=== PATIENT | male | born 1935 | race Caucasian/White ===

== ENCOUNTER 2017-07-17 16:28 | Inpatient (IN) | payer MEDICARE ==
[2017-07-17 17:22] LABS: Comments Flag Yes; Hematocrit 28 % (42-52); Mean Corpuscular HGB Conc 32 g/dl (31-36); Mean Corpuscular Hemoglobin 28 pg (27-31); Mean Corpuscular Volume 86 fL (80-94); Mean Platelet Volume 8 um3 (7.4-10.4); Red Blood Count 3.24 10^6/ul (4.0-5.4); Red Cell Distribution Width 18 % (10.5-15); White Blood Count 9.8 10^3/ul (3.5-10.8)
[2017-07-17 17:24] LABS: Add Diff/Slide Review? Slide Review Added
[2017-07-17 17:36] LABS: ALT 19 U/L (7-52); Albumin 2.6 g/dL (3.2-5.2); Alkaline Phosphatase 184 U/L (34-104); BUN/Creatinine Ratio 29.8 (8-20); Blood Urea Nitrogen 53 mg/dL (6-24); CO2 Carbon Dioxide 30 mmol/L (22-32); Calcium 8.6 mg/dL (8.6-10.3); Chloride 90 mmol/L (101-111); EGFR African American 47.4 (>60); EGFR Non-African American 36.9 (>60); Globulin 4.3 g/dL (2-4); Glucose 180 mg/dL (70-100); Sodium 122 mmol/L (133-145); Total Protein 6.9 g/dL (6.4-8.9)
[2017-07-17 17:37] LABS: Troponin I 0.03 ng/mL (<0.04)
[2017-07-17 18:30] LABS: Anion Gap 2 mmol/L (2-11)
[2017-07-17] MEDS ORDERED: Albuterol/Ipratropium NEB.SOL* Albuterol 2.5 MG/Ipratropium 0.5 MG 3 ML INH ONE (18:53)
[2017-07-17] MEDS ORDERED: NS 0.9% 1000 ML* 1,000 ML IV ONE (18:55)
[2017-07-17] MEDS ORDERED: cefTRIAXone(*) 1 GM in NS 0.9% 50 ML* 50 ML IVPB ONE (18:56)
[2017-07-17] MEDS ORDERED: Azithromycin IV(*) 500 MG in NS 0.9% 250 ML* 250 ML IVPB ONE (18:56)
--- NOTE | 2017-07-17 19:06 | ED ---
Brittnee Leal Alfonso, scribed for Arcelia Hill MD on 07/17/17 at 1756 . Shortness of Breath - HPI Summary HPI Summary: This patient is an 81 year old M BIBA to [facility] with a chief complaint of SOB since earlier today. The CC is described as uncomfortable but has no pain.. Pt sent from PCP office. Symptoms aggravated by sitting up and alleviated by inhaler (uses at home). Patient reports productive cough. Pt also reports that he used to smoke 3PPD and that his last drink was 3 years ago. No home O2. Pt denies CP. No abdoimal pain. No fevers, chills. No rash. Review of paperwork form PCP - pt with h/o cirrhosis, copd, enlarged prostate. PMHx includes DM2, ASTHMA, COPD, bronchiolitis, and cirrhosis. Pt denies PMHx of [place] and CVA. Patients medication reviewed this visit. - History of Current Complaint Chief Complaint: EDShortnessOfBreath Time Seen by Provider: 07/17/17 17:51 Hx Obtained From: Patient Onset/Duration: Still Present Aggrevating Factors: Movement - Sitting up Alleviating Factors: Bronchodilators - inhaler at home Associated Signs & Symptoms: Cough (Productive) - Allergy/Home Medications Allergies/Adverse Reactions: Allergies Allergy/AdvReac Type Severity Reaction Status Date / Time Red Dye Allergy Unknown Unknown Verified 12/28/14 09:19 Reaction Details PMH/Surg Hx/FS Hx/Imm Hx Previously Healthy: Yes Endocrine/Hematology History: Reports: Hx Diabetes, Hx Anemia Cardiovascular History: Reports: Hx Hypertension Denies: Hx Myocardial Infarction Respiratory History: Reports: Hx Asthma, Hx Chronic Bronchitis, Hx Chronic Obstructive Pulmonary Disease (COPD), Hx Pneumonia, Other Respiratory Problems/ Disorders - emphasema GI History: Reports: Hx Cirrhosis - alcoholic History: Reports: Other Problems/Disorders - renal insufficency Musculoskeletal History: Reports: Hx Arthritis, Hx Gout Sensory History: Reports: Hx Contacts or Glasses - for reading Opthamlomology History: Reports: Hx Contacts or Glasses - for reading Neurological History: Denies: Hx CVA - Surgical History Surgery Procedure, Year, and Place: bilateral catarac extration. bronchoscopy Infectious Disease History: No Infectious Disease History: Reports: Hx of Known/Suspected MRSA Denies: Traveled Outside the [place] in Last 30 Days - Family History Known Family History: Positive: Diabetes, Other - Asthma - Social History Occupation: Retired Lives: With Family Alcohol Use: None - neg x 3 years per pt Substance Use Type: Reports: None Smoking Status (MU): Former Smoker - neg x 2 years per pt Review of Systems Constitutional: Negative Eyes: Negative ENT: Negative Cardiovascular: Negative Positive: Shortness Of Breath - uncomfortable but no pain, Cough - Productive cough Gastrointestinal: Negative Genitourinary: Negative Musculoskeletal: Negative Skin: Negative Neurological: Negative Psychological: Normal All Other Systems Reviewed And Are Negative: Yes Physical Exam Triage Information Reviewed: Yes Vital Signs On Initial Exam: Initial Vitals BP 170/58 07/17/17 16:37 Vital Signs Reviewed: Yes Appearance: Positive: Well-Appearing, Well-Nourished Skin: Positive: Warm, Skin Color Reflects Adequate Perfusion, Dry Head/Face: Positive: Normal Head/Face Inspection Eyes: Positive: Normal, EOMI, CLARICE ENT: Positive: Normal ENT inspection, Hearing grossly normal, Pharynx normal Neck: Positive: Supple, Nontender, No Lymphadenopathy Respiratory/Lung Sounds: Positive: Wheezes - audible wheeze, diffuse scattered wheeze on exam no acessory muscle use, + cough. Negative: Rales, Rhonchi, Subcutaneous Emphysema Cardiovascular: Positive: Normal, RRR. Negative: Murmur Abdomen Description: Positive: Nontender, No Organomegaly, Soft Bowel Sounds: Positive: Present Musculoskeletal: Positive: Normal, Strength/ROM Intact Neurological: Positive: Normal, Sensory/Motor Intact, Alert, Oriented to Person Place, Time Psychiatric: Positive: Normal AVPU Assessment: Alert - Tenino Coma Scale Best Eye Response: 4 - Spontaneous Best Motor Response: 6 - Obeys Commands Best Verbal Response: 5 - Oriented Coma Scale Total: 15 Diagnostics - Vital Signs Vital Signs Temp Pulse Resp BP Pulse Ox 07/17/17 17:30 25 184/62 07/17/17 17:00 60 27 183/58 98 07/17/17 16:38 97.4 F 59 29 170/58 98 07/17/17 16:37 170/58 - Laboratory Lab Results: Lab Results 07/17/17 07/17/17 Range/Units 17:09 17:09 WBC 9.8 (3.5-10.8) 10^3/ul RBC 3.24 L (4.0-5.4) 10^6/ul Hgb 9.0 L (14.0-18.0) g/dl Hct 28 L (42-52) % MCV 86 (80-94) fL MCH 28 (27-31) pg MCHC 32 (31-36) g/dl RDW 18 H (10.5-15) % Plt Count 100 L (150-450) 10^3/ul MPV 8 (7.4-10.4) um3 Neut % (Auto) 80.9 (38-83) % Lymph % (Auto) 7.8 L (25-47) % Jewell % (Auto) 8.6 (1-9) % Eos % (Auto) 1.4 (0-6) % Baso % (Auto) 1.3 (0-2) % Absolute Neuts (auto) 7.9 H (1.5-7.7) 10^3/ul Absolute Lymphs (auto) 0.8 L (1.0-4.8) 10^3/ul Absolute Monos (auto) 0.8 (0-0.8) 10^3/ul Absolute Eos (auto) 0.1 (0-0.6) 10^3/ul Absolute Basos (auto) 0.1 (0-0.2) 10^3/ul Absolute Nucleated RBC 0 10^3/ul Nucleated RBC % 0 Sodium 122 L (133-145) mmol/L Potassium Pending Chloride 90 L (101-111) mmol/L Carbon Dioxide 30 (22-32) mmol/L Anion Gap Pending BUN 53 H (6-24) mg/dL Creatinine 1.78 H (0.67-1.17) mg/dL Est GFR ( Amer) 47.4 (>60) Est GFR (Non-Af Amer) 36.9 (>60) BUN/Creatinine Ratio 29.8 H (8-20) Glucose 180 H (70-100) mg/dL Calcium 8.6 (8.6-10.3) mg/dL Total Bilirubin 0.70 (0.2-1.0) mg/dL AST Pending ALT 19 (7-52) U/L Alkaline Phosphatase 184 H (34-104) U/L Troponin I 0.03 (<0.04) ng/mL Total Protein 6.9 (6.4-8.9) g/dL Albumin 2.6 L (3.2-5.2) g/dL Globulin 4.3 H (2-4) g/dL Albumin/Globulin Ratio 0.6 L (1-3) Result Diagrams: 07/17/17 17:09 07/17/17 17:09 Lab Statement: Any lab studies that have been ordered have been reviewed, and results considered in the medical decision making process. - Radiology CXR Radiology Interpretation Completed By: Radiologist - BILATERAL INFILTRATES, RECOMMEND FOLLOW-UP CHEST X-RAYS TO RESOLUTION. - EKG 1859 Cardiac Rate: NL - BPM 61 EKG Rhythm: Sinus Rhythm EKG Interpretation: NAC Re-Evaluation - Re-Evaluation First Eval Comment: improved following neb. pt with PNA on CXR. Will give zithromax/ Ceftriaxone. also with hyponatremia. IVF. d/w hospitalist, will admit Course/Dx - Course Assessment/Plan: PT presents from PCP with cough, wheeze, productive sputum - states feels weak and tired. Pt with + diffuse wheeze and auible wheeze. no accessory muscle use. Will check cxr. labs, lactic acid. nebs. like abx. +/ - steroids. sats 94% 2lNC - Diagnoses Provider Diagnoses: PNA (pneumonia), Hyponatremia - Physician Notifications Discussed Care of Patient With: Gopal Hill Time Discussed With Above Provider: 18:50 Instructed by Provider To: Other - Consulted Dr. Hill (hospitalist) who agrees to admit. Discharge - Discharge Plan Condition: Stable Disposition: ADMITTED TO [facility] Referrals: Caleb Fonseca MD [Primary Care Provider] - The documentation as recorded by the Brittnee baird Alfonso accurately reflects the service I personally performed and the decisions made by Sergio bazan Laura, MD.
--- NOTE | 2017-07-17 19:18 | RAD ---
INDICATION: Shortness of breath. COMPARISON: Comparison is made with a prior study from December 28, 2014. TECHNIQUE: A portable view of the chest was obtained. FINDINGS: The heart is within normal limits in size. There is a focal infiltrate in the right upper lobe and a patchy infiltrate present at the left lung base. No pleural effusion is seen. IMPRESSION: BILATERAL INFILTRATES, RECOMMEND FOLLOW-UP CHEST X-RAYS TO RESOLUTION.
[2017-07-17] MEDS ORDERED: Vancomycin(*) 1,000 MG in NS 0.9% 250 ML* 250 ML IVPB SCH (20:00)
--- NOTE | 2017-07-17 21:28 | HP ---
H&P (Free Text) History and Physical: PCP: Bright Joseph MD Date/Time of Evaluation: 07/17/20172019 CC: none HPI: Mr Mcmanus is an 81YO male poor historian who states that he is here because his wanted him to come. She is not present for information. He denies any acute symptoms, illnesses, change in baseline function or other issues. Further questioning reveals he was referred to [facility] ED from his PCP's office where he was seen today and felt to be very SOB with a low saO2 prompting EMS to be called for transport. Mr Mcmanus denies SOB, chest pain, palpitations, F/C, change in cough/sputum, N/V, congestion, or light- headedness. He is currently resting in his ED bed in no obvious distress. PMedHx COPD cirrhosis hepato-renal syndrome thrombocytopenia DM2, insulin requiring CKD stg 3b HTN HLD GERD Ambulatory Orders Albuterol Sulfate [Proair Hfa] 108 mcg IN Q4HR PRN 12/28/14 Insulin NPH (Human) (Isophane) [Humulin N Kwikpen] 10 unit SC SEE INSTRUCTIONS 12/28/14 Levofloxacin TAB* [Levaquin 500 Tab*] 500 mg PO WEEKLY 12/28/14 Nadolol TAB* [Corgard TAB*] 20 mg PO DAILY 12/28/14 Omeprazole CAP* [Prilosec CAP*] 20 mg PO DAILY 12/28/14 Tiotropium CAP.INH* [Spiriva*] 1 cap INH DAILY 12/28/14 Allergies Red Dye Allergy (Unknown, Verified 12/28/14 09:19) Unknown Reaction Details SocHx: former smoker, former drinker, no recreational drugs; lives with his ; full code status FamHx: positive for CAD, CVA, HTN, DM2 ROS: as above, otherwise reviewed and all were negative Constitutional: NAD, normally developed, well-nourished elderly white male vitals: Vital Signs Temp 36.6 C 07/17/17 19:12 Pulse 58 07/17/17 21:00 Resp 19 07/17/17 21:00 BP 121/52 07/17/17 21:00 Pulse Ox 100 07/17/17 21:00 Intake & Output 08/20/17 08/21/17 08/21/17 23:59 11:59 23:59 Intake Total 50 Balance 50 Weight 63.503 kg Intake: IVPB 50 HEENM: atraumatic; sclera/conjunctiva: non-icteric/clear; hearing: clinically mildly decreased oropharynx: clear, mucosa moist Neck: soft tissue: non-tender, no nuchal rigidity; thyroid: normal Pulmonary: diminished B with prominent mid- to end-expiratory wheeze on the R, fair to poor aeration, no accessory muscle use CV: RR/RR, normal S1S2, no carotid bruit, no jugular venous distention, 2+ B DP/ PT, 1+ BLE edema Abdominal: soft, non-distended, non-tender, no rebound/guarding/rigidity, normoactive bowel sounds, no hepatosplenomegaly or masses, small non-tender jesus -umbilical hernia; no costovertebral angle tenderness Musculoskeletal: general: grossly intact, no palpable tenderness Integumental: R anterior thomason bruise/skin tear w/o discharge, warmth, induration , erythema, or tenderness Psychiatric orientation: AA&O to PPS affect: calm mood: cooperative eye contact: fair content: unreliable responses: timely insight: poor Testing: Lab Results 07/17/17 07/17/17 07/17/17 Range/Units 17:09 17:09 17:09 WBC 9.8 (3.5-10.8) 10^3/ul RBC 3.24 L (4.0-5.4) 10^6/ul Hgb 9.0 L (14.0-18.0) g/dl Hct 28 L (42-52) % MCV 86 (80-94) fL MCH 28 (27-31) pg MCHC 32 (31-36) g/dl RDW 18 H (10.5-15) % Plt Count 100 L (150-450) 10^3/ul MPV 8 (7.4-10.4) um3 Neut % (Auto) 80.9 (38-83) % Lymph % (Auto) 7.8 L (25-47) % Gage % (Auto) 8.6 (1-9) % Eos % (Auto) 1.4 (0-6) % Baso % (Auto) 1.3 (0-2) % Absolute Neuts (auto) 7.9 H (1.5-7.7) 10^3/ul Absolute Lymphs (auto) 0.8 L (1.0-4.8) 10^3/ul Absolute Monos (auto) 0.8 (0-0.8) 10^3/ul Absolute Eos (auto) 0.1 (0-0.6) 10^3/ul Absolute Basos (auto) 0.1 (0-0.2) 10^3/ul Absolute Nucleated RBC 0 10^3/ul Nucleated RBC % 0 Sodium 122 L (133-145) mmol/L Potassium TNP Chloride 90 L (101-111) mmol/L Carbon Dioxide 30 (22-32) mmol/L Anion Gap 2 (2-11) mmol/L BUN 53 H (6-24) mg/dL Creatinine 1.78 H (0.67-1.17) mg/dL Est GFR ( Amer) 47.4 (>60) Est GFR (Non-Af Amer) 36.9 (>60) BUN/Creatinine Ratio 29.8 H (8-20) Glucose 180 H (70-100) mg/dL Calcium 8.6 (8.6-10.3) mg/dL Total Bilirubin 0.70 (0.2-1.0) mg/dL AST TNP ALT 19 (7-52) U/L Alkaline Phosphatase 184 H (34-104) U/L Troponin I 0.03 (<0.04) ng/mL B-Natriuretic Peptide 155 H ( - 100) pg/mL Total Protein 6.9 (6.4-8.9) g/dL Albumin 2.6 L (3.2-5.2) g/dL Globulin 4.3 H (2-4) g/dL Albumin/Globulin Ratio 0.6 L (1-3) 07/17/17 Range/Units 19:25 WBC (3.5-10.8) 10^3/ul RBC (4.0-5.4) 10^6/ul Hgb (14.0-18.0) g/dl Hct (42-52) % MCV (80-94) fL MCH (27-31) pg MCHC (31-36) g/dl RDW (10.5-15) % Plt Count (150-450) 10^3/ul MPV (7.4-10.4) um3 Neut % (Auto) (38-83) % Lymph % (Auto) (25-47) % Gage % (Auto) (1-9) % Eos % (Auto) (0-6) % Baso % (Auto) (0-2) % Absolute Neuts (auto) (1.5-7.7) 10^3/ul Absolute Lymphs (auto) (1.0-4.8) 10^3/ul Absolute Monos (auto) (0-0.8) 10^3/ul Absolute Eos (auto) (0-0.6) 10^3/ul Absolute Basos (auto) (0-0.2) 10^3/ul Absolute Nucleated RBC 10^3/ul Nucleated RBC % Sodium (133-145) mmol/L Potassium 5.1 H Chloride (101-111) mmol/L Carbon Dioxide (22-32) mmol/L Anion Gap (2-11) mmol/L BUN (6-24) mg/dL Creatinine (0.67-1.17) mg/dL Est GFR ( Amer) (>60) Est GFR (Non-Af Amer) (>60) BUN/Creatinine Ratio (8-20) Glucose (70-100) mg/dL Calcium (8.6-10.3) mg/dL Total Bilirubin (0.2-1.0) mg/dL AST 39 ALT (7-52) U/L Alkaline Phosphatase (34-104) U/L Troponin I (<0.04) ng/mL B-Natriuretic Peptide ( - 100) pg/mL Total Protein (6.4-8.9) g/dL Albumin (3.2-5.2) g/dL Globulin (2-4) g/dL Albumin/Globulin Ratio (1-3) ECG, personally reviewed: NSR rate 61, no ischemia CXR, personally reviewed: IMPRESSION: BILATERAL INFILTRATES, RECOMMEND FOLLOW- UP CHEST X-RAYS TO RESOLUTION. Impression: 81M presenting with sepsis (tachypnea & AMS) 2nd B CAP and 2nd COPD exacerbation DIAGNOSIS & PLAN Primary sepsis 2nd B CAP : azithromycin & ceftriaxone IV : single dose vancomycin given in ED, no further indication : IVFs : blood & sputum CXs : supplemental oxygen : guaifenesin : urine S pneumonia & Legionella antigens : incentive spirometry : supportive care COPD exacerbation : albuterol nebs : mometasone/formoterol : tiotropium : IV methylprednisolone Secondary cirrhosis : HX hepato-renal syndrome : HX 2nd thrombocytopenia : periodic monitoring DM2 : insulin carb ratio diet : check A1c : basal/bolus/correctional insulin CKD stg 3b : IVFs & monitor HTN : review meds once reconciled HLD : heart healthy diet : review meds once reconciled GERD : omeprazole Admission Rational: inpatient for IVFs & IV ABX for sepsis 2nd CAP inappropriate for outpatient setting DVTp: heparin SQ & SCDs Code Status: full HCP:
[2017-07-17] MEDS ORDERED: Ondansetron INJ* 2 MG/ML VIAL IV PRN (21:30)
[2017-07-17] MEDS ORDERED: Acetaminophen TAB* 325 MG PO PRN (21:30)
[2017-07-17] MEDS ORDERED: CMCS: Melatonin (NF) 3 MG TAB PO PRN (21:30)
[2017-07-17] MEDS ORDERED: Albuterol 2.5 MG/3 ML NEB.SOL* (0.083%) INH PRN (21:30)
[2017-07-17] MEDS ORDERED: methylPREDNISolone 125 MG* 2 ML VIAL IV ONE (22:35)
[2017-07-17] MEDS: NS 0.9% 1000 ML* 1,000 ML IV SCH (23:43)
[2017-07-18] MEDS: Albuterol 2.5 MG/3 ML NEB.SOL* (0.083%) INH SCH ×4 (02:00→19:29)
[2017-07-18] MEDS ORDERED: methylPREDNISolone SOD 40 MG* 1 ML VIAL IV SCH (06:00)
[2017-07-18 06:01] LABS: Hematocrit 23 % (42-52); Hemoglobin 7.4 g/dl (14.0-18.0); Mean Corpuscular HGB Conc 32 g/dl (31-36); Mean Corpuscular Hemoglobin 28 pg (27-31); Mean Corpuscular Volume 86 fL (80-94); Mean Platelet Volume 8 um3 (7.4-10.4); Red Blood Count 2.64 10^6/ul (4.0-5.4); Red Cell Distribution Width 18 % (10.5-15); White Blood Count 4.4 10^3/ul (3.5-10.8)
[2017-07-18 06:05] LABS: Comments Flag Yes
[2017-07-18 06:06] LABS: Add Diff/Slide Review? Slide Review Added
[2017-07-18 06:23] LABS: BUN/Creatinine Ratio 33.5 (8-20); Calcium 8.1 mg/dL (8.6-10.3); EGFR Non-African American 39.7 (>60); Potassium 5.3 mmol/L (3.5-5.0)
[2017-07-18] MEDS: Heparin VIAL(*) 5000 UNITS/ML VIAL (FIVE THOUSAND) SUBCUT SCH ×3 (06:24→21:18)
[2017-07-18] MEDS: Omeprazole CAP* 20 MG PO SCH (06:24)
[2017-07-18] MEDS: guaiFENesin ER TAB 600 MG PO SCH ×2 (08:25→21:18)
[2017-07-18] MEDS: Tiotropium CAP.INH* CAP.INH/18 MCG INH SCH (08:26)
[2017-07-18] MEDS: Mometasone/Formoter 200/5 MDI INH SCH ×2 (08:30→19:29)
[2017-07-18] MEDS ORDERED: Spiriva Inhaler DEVICE* 1 EACH DEVICE INH ONE (09:00)
[2017-07-18] MEDS: Insulin LISPRO* 1 UNITS UNIT SUBCUT SCH ×7 (09:30→21:31)
--- NOTE | 2017-07-18 10:30 | PN ---
Subjective Date of Service: 07/18/17 Interval History: Patient seen this morning. Asking to go home. Denies SOB, says he has a chronic wheeze and chronic cough. Said he came to the hospital because he fell at home and his made him come. Explained PNA and COPD exacerbation, seems agreeable to stay. Family History: Unchanged from Admission Social History: Unchanged from Admission Past Medical History: Unchanged from Admission Objective Active Medications: Acetaminophen (Tylenol Tab*) 650 mg PO Q6H PRN Albuterol (Ventolin 2.5 Mg/3 Ml Neb.Rebecca*) 2.5 mg INH Q2H PRN Albuterol (Ventolin 2.5 Mg/3 Ml Neb.Rebecca*) 2.5 mg INH [id number] AWAKE VANITA Guaifenesin (Mucinex*) 1,200 mg PO BID VANITA Heparin Sodium (Porcine) (Heparin Vial(*)) 5,000 units SUBCUT Q8HR VANITA Sodium Chloride (Ns 0.9% 1000 Ml*) 1,000 mls @ 85 mls/hr IV PER RATE VANITA Ceftriaxone Sodium 1,000 mg/ (Sodium Chloride) 50 mls @ 200 mls/hr IVPB Q24H VANITA Azithromycin 500 mg/ Sodium (Chloride) 250 mls @ 250 mls/hr IVPB Q24H [facility] Insulin Glargine (Lantus(*)) 10 units SUBCUT 2100 VANITA Insulin Human Lispro (Humalog*) 0 units SUBCUT AC VANITA Insulin Human Lispro (Humalog*) 0 units SUBCUT ACHS VANITA Melatonin (Melatonin (Nf)) 3 mg PO BEDTIME PRN; Protocol Methylprednisolone Sodium Succinate (Solu-Medrol 40 Mg) 40 mg IV Q8H [facility] Mometasone Furoate/Formoterol Fumar (Dulera 200/5 Mdi*) 2 puff INH BID VANITA Omeprazole (Prilosec Cap*) 20 mg PO DAILY@0600 VANITA Ondansetron HCl (Zofran Inj*) 4 mg IV Q6H PRN Tiotropium [place] (Spiriva Cap.Inh*) 1 cap INH DAILY [facility] Vital Signs 07/17/17 07/17/17 07/17/17 20:30 21:00 21:53 Temperature 97.4 F Pulse Rate 59 58 67 Respiratory 22 19 20 Rate Blood Pressure 137/53 121/52 137/50 (mmHg) O2 Sat by Pulse 100 100 99 Oximetry 07/17/17 07/18/17 07/18/17 22:00 00:05 00:15 Temperature 97.4 F 97.5 F Pulse Rate 67 56 Respiratory 20 16 Rate Blood Pressure 137/50 116/42 118/54 (mmHg) O2 Sat by Pulse 99 98 Oximetry 07/18/17 07/18/17 04:27 08:48 Temperature 97.6 F Pulse Rate 64 Respiratory 16 Rate Blood Pressure 144/57 (mmHg) O2 Sat by Pulse 95 98 Oximetry Oxygen Devices in Use Now: None Appearance: Elderly, M, laying in bed in NAD Eyes: No Scleral Icterus Ears/Nose/Mouth/Throat: - - Dry MM Neck: NL Appearance and Movements; NL JVP Respiratory: Symmetrical Chest Expansion and Respiratory Effort, - - Poor- moderate air movement, expiratory wheezing throughout, no rales Cardiovascular: NL Sounds; No Murmurs; No JVD, RRR Abdominal: - - Soft, distended, BS+, non-tender Lymphatic: No Cervical Adenopathy Extremities: - - Trace LE edema Skin: No Rash or Ulcers Neurological: Alert and Oriented x 3 Result Diagrams: 07/18/17 05:45 07/18/17 05:45 Microbiology and Other Data: Microbiology 07/18/17 00:52 Legionella Urinary Antigen - Final Urine Negative Legionella Streptococcus pneumoniae Ag Screen - Final Negative S. pneumo Antigen 07/17/17 22:02 Nasal Screen MRSA (PCR)(MARIAH) - Final Nasal Mrsa Negative Assess/Plan/Problems-Billing Assessment: COPD exacerbation 2/2 CAP, hyponatremia in an 81 yo M with hx of COPD, cirrhosis , HTN, HLD, CKD3, DM, GERD - Patient Problems (1) COPD exacerbation Current Visit: Yes Comment: 2/2 CAP. Currently not requiring O2. Change to PO steroids, continue nebs, dulera, spiriva. (2) CAP (community acquired pneumonia) Current Visit: Yes Comment: Continue IV CTX/Azithromycin (Day 2). Urine antigens negative. Not requiring O2. (3) Hyponatremia Current Visit: Yes Comment: May be from dehydration, poor PO intake. Improving with light IVF, will continue for now. Check Norbert. (4) Type 2 diabetes mellitus Current Visit: No Comment: Continue HISS. HbA1c pending. (5) Chronic renal insufficiency Current Visit: No Comment: Stable (6) HTN (hypertension) Current Visit: Yes Comment: Hold nadolol for now (7) Cirrhosis Current Visit: Yes Comment: Seems stable, platelets around baseline, hold diuretics for now (8) DVT prophylaxis Current Visit: Yes Comment: HSQ
[2017-07-18] MEDS: NS 0.9% 1000 ML* 1,000 ML IV SCH (12:07)
[2017-07-18] MEDS: predniSONE TAB* 20 MG PO SCH (13:16)
[2017-07-18] MEDS ORDERED: Insulin GLARGINE(*) 1 UNITS UNIT SUBCUT SCH (21:00)
[2017-07-18] MEDS ORDERED: Azithromycin IV(*) 500 MG in NS 0.9% 250 ML* 250 ML IVPB SCH (21:00)
[2017-07-18] MEDS ORDERED: cefTRIAXone VIAL(*) 1,000 MG in NS 0.9% 50 ML* 50 ML IVPB SCH (21:00)
[2017-07-19] MEDS: NS 0.9% 1000 ML* 1,000 ML IV SCH (01:05)
[2017-07-19] MEDS: Albuterol 2.5 MG/3 ML NEB.SOL* (0.083%) INH SCH ×3 (01:24→13:10)
[2017-07-19] MEDS: Omeprazole CAP* 20 MG PO SCH (05:35)
[2017-07-19] MEDS: Heparin VIAL(*) 5000 UNITS/ML VIAL (FIVE THOUSAND) SUBCUT SCH (05:35)
[2017-07-19 05:41] LABS: Hematocrit 19 % (42-52); Mean Corpuscular HGB Conc 33 g/dl (31-36); Mean Corpuscular Hemoglobin 28 pg (27-31); Mean Corpuscular Volume 86 fL (80-94); Mean Platelet Volume 8 um3 (7.4-10.4); Red Blood Count 2.24 10^6/ul (4.0-5.4); Red Cell Distribution Width 18 % (10.5-15); White Blood Count 5.1 10^3/ul (3.5-10.8)
[2017-07-19 05:43] LABS: Comments Flag Yes
[2017-07-19 05:44] LABS: Add Diff/Slide Review? Slide Review Added
[2017-07-19 05:45] LABS: Hemoglobin 6.3 g/dl (14.0-18.0)
[2017-07-19 05:57] LABS: BUN/Creatinine Ratio 34.8 (8-20); EGFR African American 41.9 (>60); EGFR Non-African American 32.6 (>60); Potassium 4.9 mmol/L (3.5-5.0)
[2017-07-19 06:23] LABS: Hematocrit 22 % (42-52); Hemoglobin 7.1 g/dl (14.0-18.0)
[2017-07-19 06:43] LABS: Comments Flag Yes
[2017-07-19] MEDS: Tiotropium CAP.INH* CAP.INH/18 MCG INH SCH (07:41)
[2017-07-19] MEDS: Mometasone/Formoter 200/5 MDI INH SCH (07:42)
[2017-07-19] MEDS: predniSONE TAB* 20 MG PO SCH (08:56)
[2017-07-19] MEDS: guaiFENesin ER TAB 600 MG PO SCH (08:56)
[2017-07-19] MEDS: Insulin LISPRO* 1 UNITS UNIT SUBCUT SCH ×4 (08:58→13:40)
[2017-07-19] MEDS ORDERED: Spironolactone TAB* 25 MG PO SCH (12:15)
[2017-07-19] MEDS ORDERED: Furosemide TAB* 20 MG PO SCH (13:00)
--- NOTE | 2017-07-19 14:33 | DCNOTE ---
Patient seen this morning. Says he feels well, anxious to go home. No SOB at this time, ambulated with PT with no issues. Patient says he has had blood in his stool for years, also takes iron. Recent notes from Dr. Davies reviewed, patient has been on care home ABx for bronchectasis. Has had a number of concerning outpatient findings (including worsening anemia) that he has not wanted to pursue a work-up for, he feels similarly at this time, would not want endoscopy. On exam, RRR, s1 and s2 present, no m/g/r, lungs with trace wheezing in lower [place], good air movement, abd distended, soft, non-tender, LE edema Hb lower this morning with guaiac positive stool (on outpatient iron), unclear if he is actually having any bleeding or anemia worse with IVF. Will transfuse 1 unit PRBC. Discharge home later today on oral ABx for CAP and prednisone. Updated on plan, her main concern is that he is stubborn and often does not follow-up doctors instructions at home. Encouraged close follow-up with Dr. Davies to discuss possible FPC placement for him or both of them.
[2017-07-19 15:07] VITALS: BP 121/46
--- NOTE | 2017-07-20 10:01 | DS ---
CC: Dr. Pao Davies * DISCHARGE SUMMARY: DATE OF ADMISSION: 07/17/17 DATE OF DISCHARGE: 07/19/17 PRIMARY CARE PHYSICIAN: Dr. Pao Davies. PRINCIPAL DISCHARGE DIAGNOSES: 1. Community-acquired pneumonia. 2. Chronic obstructive pulmonary disease exacerbation. 3. Hyponatremia. 4. Acute on chronic anemia. SECONDARY DIAGNOSES: 1. Cirrhosis. 2. History of hepatorenal syndrome. 3. Thrombocytopenia. 4. Type 2 diabetes. 5. Chronic kidney disease, stage 3. 6. Hypertension. 7. Hyperlipidemia. 8. Gastroesophageal reflux disease. DISCHARGE MEDICATION REGIMEN: 1. Cefpodoxime 200 mg by mouth 2 times daily. 2. Azithromycin 500 mg by mouth daily. 3. Lasix 20 mg by mouth daily. 4. Spironolactone 25 mg by mouth daily. 5. Prednisone 40 mg by mouth daily. 6. Albuterol 108 micrograms inhaled every 4 hours as needed for shortness of breath or wheezing. 7. Insulin NPH as instructed. 8. Nadolol 20 mg by mouth daily. 9. Omeprazole 20 mg by mouth daily. 10. Spiriva 1 capsule inhaled daily. 11. Vitamin C 500 mg by mouth daily. 12. Ferrous sulfate 325 mg by mouth daily. STUDIES DONE DURING HOSPITALIZATION: Chest x-ray, impression: Bilateral infiltrates. Recommend followup chest x-rays to resolution. HISTORY OF PRESENT ILLNESS AND HOSPITAL SUMMARY: Please see the full history and physical by Dr. Bo Ordaz for full details. Briefly, Mr. Mcmanus is an 81- year-old male with a past medical history as above, who presented to the hospital after being referred from his PCP office for progressive shortness of breath, cough, and falls at home. In the emergency department, the patient was found to have consolidations on chest x-ray and was also hyponatremic with sodium of 122. The patient was started on IV antibiotics to treat the pneumonia and was also treated for COPD exacerbation with initially IV and then subsequently p.o. steroids along with nebulizers and inhalers. The patient's symptoms improved over the following days. He states his breathing seemed much better. He was given some IV fluids with improvements in his sodium; however, potentially a little bit worsening in his chronic edema. Notes obtained from Dr. Davies's office indicated that the patient has had significant chronic medical problems and often has not wanted further workup or invasive testing, prefers to just let nature about its course. The patient told me that he has had blood present in the stool for years now. He had worsening of his chronic anemia while hospitalized here with hemoglobin that dropped down to 7.1. The patient's stool was guaiac positive, although he does take iron supplementation as an outpatient. The patient was transfused 1 unit of blood prior to discharge. He was evaluated by Physical Therapy who cleared the patient to go home. I spoke with the patient's each day that the patient was hospitalized. She expressed some concern over being able to handle the patient at home, but this did not seem to be from a physical standpoint, but rather getting the patient to comply with doctor's recommendations. I understood her concern; however, it seems that the patient has been stubborn for quite a long time and may have a difficult time changing this. I encouraged her to go into her 's next appointment with Dr. Davies and discuss the possibility of assisted living for him or both of them as they currently live in [facility]. The patient will be discharged on 5 additional days of oral antibiotics as well as with a short course of prednisone for his COPD. He seems to be on chronic antibiotics for his bronchiectasis and instructed he and his to hold these antibiotics until he has completed his course of cefpodoxime and then he can discuss further with Dr. Davies if and when to resume these other antibiotics specifically Keflex, doxycycline, and Levaquin. The patient will be discharged home and should follow up with the PCP as above. Total time spent on this discharge was 45 minutes. This is a summary of hospitalization. Please see the full medical record for further details. [id number]/[facility] #: [id number] [facility]
== END 2017-07-19 16:45 | disposition home health service (06) | DRG 190 ==
LOC: ED 16:28 → MED 20:19
PROVIDERS: ADMIT Hospitalist; ATTEND Hospitalist
PROC: 30233N1 Transfusion of Nonautologous Red Blood Cells into Peripheral Vein, Percutaneous Approach (ICD-10-PCS; principal; 2017-07-19)
DX: J44.0 Chronic obstructive pulmonary disease with (acute) lower respiratory infection (principal); K76.7 Hepatorenal syndrome; J18.9 Pneumonia, unspecified organism; E11.22 Type 2 diabetes mellitus with diabetic chronic kidney disease; D69.6 Thrombocytopenia, unspecified; R40.2362 Coma scale, best motor response, obeys commands, at arrival to emergency department; R40.2142 Coma scale, eyes open, spontaneous, at arrival to emergency department; R40.2252 Coma scale, best verbal response, oriented, at arrival to emergency department; J47.9 Bronchiectasis, uncomplicated; D64.9 Anemia, unspecified; K74.60 Unspecified cirrhosis of liver; E87.1 Hypo-osmolality and hyponatremia; N18.3 Chronic kidney disease, stage 3 (moderate); J44.1 Chronic obstructive pulmonary disease with (acute) exacerbation; I12.9 Hypertensive chronic kidney disease with stage 1 through stage 4 chronic kidney disease, or unspecified chronic kidney disease; E78.5 Hyperlipidemia, unspecified; K21.9 Gastro-esophageal reflux disease without esophagitis; F10.21 Alcohol dependence, in remission; N40.0 Benign prostatic hyperplasia without lower urinary tract symptoms; M19.90 Unspecified osteoarthritis, unspecified site; M10.9 Gout, unspecified; Z87.891 Personal history of nicotine dependence; Z82.49 Family history of ischemic heart disease and other diseases of the circulatory system; Z83.3 Family history of diabetes mellitus; Z82.3 Family history of stroke; Z91.041 Radiographic dye allergy status; Z87.01 Personal history of pneumonia (recurrent); Z98.42 Cataract extraction status, left eye; Z98.41 Cataract extraction status, right eye; Z82.5 Family history of asthma and other chronic lower respiratory diseases; Z79.2 Long term (current) use of antibiotics; Z79.52 Long term (current) use of systemic steroids; Z79.4 Long term (current) use of insulin; R60.9 Edema, unspecified
CPT/HCPCS: 36415; 36600; 71010; 80048; 80053; 82270; 83036; 83880; 84300; 84484; 85014; 85018; 85025; 86850; 86900; 86901; 86922; 87040; 87070; 87077; 87186; 87205; 87641; 87899; 93005; 94640; 94760; A9270-GY; J0456; J0696; J1644; J2920; J2930; J7512; P9040

== ENCOUNTER 2017-07-25 15:57 | Inpatient (IN) | payer MEDICARE ==
--- NOTE | 2017-07-25 16:30 | RAD ---
Indication: Shortness of breath. Single frontal view of the chest performed at 1616 hours was reviewed. Comparison is made with previous exam dated July 17, 2017. Right upper lobe and left basilar infiltrates are still persistent. Overall no changes noted since previous exam of July 17, 2017. IMPRESSION: RIGHT UPPER LOBE AND LEFT BASILAR INFILTRATE UNCHANGED SINCE PREVIOUS EXAM.
[2017-07-25 16:39] LABS: PCO2 Arterial 57 mmHg (35-45)
[2017-07-25 16:52] LABS: Comments Flag Yes; Hematocrit 29 % (42-52); Hemoglobin 9.4 g/dl (14.0-18.0); Mean Corpuscular HGB Conc 33 g/dl (31-36); Mean Corpuscular Hemoglobin 29 pg (27-31); Mean Corpuscular Volume 88 fL (80-94); Mean Platelet Volume 8 um3 (7.4-10.4); Red Blood Count 3.31 10^6/ul (4.0-5.4); Red Cell Distribution Width 18 % (10.5-15); White Blood Count 9.4 10^3/ul (3.5-10.8)
[2017-07-25 17:09] LABS: Troponin I 0.03 ng/mL (<0.04)
[2017-07-25 17:10] LABS: Albumin 2.6 g/dL (3.2-5.2); BUN/Creatinine Ratio 37.1 (8-20); C Reactive Protein 47.73 mg/L (< 5.00); Calcium 8.9 mg/dL (8.6-10.3); EGFR African American 47.4 (>60); EGFR Non-African American 36.9 (>60); Globulin 3.7 g/dL (2-4); Magnesium 1.6 mg/dL (1.9-2.7); Potassium 5.5 mmol/L (3.5-5.0); Total Protein 6.3 g/dL (6.4-8.9)
[2017-07-25] MEDS ORDERED: Magnesium Sulfate 2 GM IV* 2 GM/50 ML BAG IVPB ONE (17:13)
[2017-07-25 17:42] LABS: TSH (Thyroid Stimulating Horm) 2.58 mcIU/mL (0.34-5.60)
[2017-07-25] MEDS ORDERED: Iodixanol* (CONTRAST) 320 MG/ML 100 ML SDV IV ONE (17:44)
--- NOTE | 2017-07-25 18:18 | RAD ---
Indication: Confusion, shortness of breath. CT of the brain was performed without IV contrast. Ventricular structures are midline. No midline shift is noted. Central and cortical atrophy is noted. There is no evidence of intracranial mass or hemorrhage. No other high or low density lesions are identified. Mastoid air cells and paranasal sinuses are otherwise unremarkable. IMPRESSION: Atrophy. There is no evidence of intracranial mass or hemorrhage.
--- NOTE | 2017-07-25 18:28 | RAD ---
Indication: Positive d-dimer with shortness of breath. Contrast: Administered 64.2 ml of VISAPAQUE 320 mg/ml CTA of the chest was performed after IV contrast administration. Coronal and sagittal reconstructed images were obtained. The pulmonary arterial tree is well opacified. There are no filling defects present to suggest pulmonary embolus. Patchy areas of alveolar consolidation with enlarged cystic areas are noted in the right upper lobe. Areas of rounded nodular densities are noted with cystic change. There is some dense consolidation noted. This is a nonspecific pattern. The possibility of cryptogenic organizing pneumonia or a pneumocystis infection should BE considered. Correlation with bronchoscopy May BE helpful. Additional similar-appearing nodular infiltrate is noted in the lingula. No pleural fluid is identified. The heart is of normal size and configuration. No pericardial effusion is noted. No definite mediastinal or hilar adenopathy is noted. The liver demonstrates lobulated contours consistent with cirrhosis. Splenomegaly is noted. Moderate amount of ascites is noted. IMPRESSION: NO PULMONARY EMBOLUS IS NOTED. AIRSPACE DISEASE WITH NODULAR AND CYSTIC CHANGE IN THE RIGHT UPPER LOBE AND NODULAR CHANGE IN THE LINGULA WHICH MAY REPRESENT INFLAMMATORY CHANGES OR NEOPLASTIC CHANGES. CIRRHOSIS OF LIVER WITH ASCITES.
[2017-07-25] MEDS ORDERED: Dextrose 50% Syringe 50 ML* 25 GM/50 ML SYRINGE IV PUSH PRN (19:25)
[2017-07-25] MEDS ORDERED: Cefepime(*) 2 GM in NS 0.9% 50 ML* 50 ML IVPB SCH (20:00)
[2017-07-25] MEDS ORDERED: Enoxaparin(*) 40 MG/0.4 ML SYR SUBCUT SCH (20:00)
[2017-07-25] MEDS ORDERED: Vancomycin per Pharmacy* NOTE FOLLOW UP PRN (20:15)
[2017-07-25] MEDS ORDERED: Enoxaparin(*) 40 MG/0.4 ML SYR ONE (20:28)
[2017-07-25] MEDS ORDERED: Vancomycin(*) 1,250 MG in NS 0.9% 250 ML* 250 ML IVPB ONE (21:00)
[2017-07-25] MEDS: NS 0.9% 1000 ML* 1,000 ML IV SCH (21:43)
--- NOTE | 2017-07-25 22:28 | ED ---
Yuri Leal Nikita, scribed for Donaldo Arriaga MD on 07/25/17 at 1636 . Shortness of Breath - HPI Summary HPI Summary: This patient is an 81 year old M BIBA to [facility] with a chief complaint of SOB and wheezing at rest since earlier today. Pt was given NRB SPO2 100% and duoneb by EMS. Pt was just released from hospital last week Dx with pneumonia. Patient denies CP. PMHx of DM2, ASTHMA, COPD, Brocholiitits, and Cirrohsis. - History of Current Complaint Time Seen by Provider: 07/25/17 15:59 Hx Obtained From: Patient Onset/Duration: Lasting Hours, Still Present Timing: Constant Dyspnea At: Rest Associated Signs & Symptoms: Wheezing - Allergy/Home Medications Allergies/Adverse Reactions: Allergies Allergy/AdvReac Type Severity Reaction Status Date / Time Red Dye Allergy Unknown Unknown Verified 12/28/14 09:19 Reaction Details PMH/Surg Hx/FS Hx/Imm Hx Endocrine/Hematology History: Reports: Hx Diabetes, Hx Anemia Cardiovascular History: Reports: Hx Hypertension Denies: Hx Myocardial Infarction Respiratory History: Reports: Hx Asthma, Hx Chronic Bronchitis, Hx Chronic Obstructive Pulmonary Disease (COPD), Hx Pneumonia, Other Respiratory Problems/ Disorders - emphasema GI History: Reports: Hx Cirrhosis - alcoholic History: Reports: Other Problems/Disorders - renal insufficency Musculoskeletal History: Reports: Hx Arthritis, Hx Gout Sensory History: Reports: Hx Contacts or Glasses - for reading Denies: Hx Hearing Aid Opthamlomology History: Reports: Hx Contacts or Glasses - for reading Neurological History: Denies: Hx CVA - Surgical History Surgery Procedure, Year, and Place: bilateral catarac extration. bronchoscopy Infectious Disease History: Reports: Hx of Known/Suspected MRSA - Family History Known Family History: Positive: Diabetes, Other - Asthma - Social History Alcohol Use: Pt states "a lot" everyday, unable to give an amount Substance Use Type: Reports: None Smoking Status (MU): Former Smoker Review of Systems Negative: Chest Pain Positive: Shortness Of Breath, Other - Wheezing All Other Systems Reviewed And Are Negative: Yes Physical Exam - Summary Physical Exam Summary: General: well-appearing, no pain distress Skin: warm, color reflects adequate perfusion, dry Head: normal Eyes: EOMI, CLARICE ENT: normal Neck: supple, nontender Respiratory: breath sounds present, lungs rhonchi bilaterally, poor air movement Cardiovascular: Tachycardic Abdomen: soft, nontender Bowel: present Musculoskeletal: normal, strength/ROM intact Neurological: sensory/motor intact, A&O x3, mildly confused, responsive to voice, Psychological: affect/mood appropriate GCS: 14 Triage Information Reviewed: Yes Vital Signs On Initial Exam: Initial Vitals Temp Pulse Resp BP Pulse Ox 98 F 81 22 152/65 100 07/25/17 16:06 07/25/17 16:06 07/25/17 16:06 07/25/17 16:06 07/25/17 16:06 Vital Signs Reviewed: Yes - Eileen Coma Scale Glascow Coma Scale Comments: 14 Diagnostics - Vital Signs Vital Signs Temp Pulse Resp BP Pulse Ox 07/25/17 19:16 61 23 134/46 100 07/25/17 19:00 59 17 100 07/25/17 18:13 68 17 99 07/25/17 17:30 60 19 142/61 100 07/25/17 17:04 61 16 137/45 100 07/25/17 17:00 61 13 89/56 100 07/25/17 16:30 66 15 151/47 100 07/25/17 16:20 64 15 99 07/25/17 16:19 134/48 07/25/17 16:06 98 F 81 22 152/65 100 - Laboratory Lab Results: Lab Results 07/25/17 07/25/17 07/25/17 Range/Units 16:30 16:36 16:36 WBC (3.5-10.8) 10^3/ul RBC (4.0-5.4) 10^6/ul Hgb (14.0-18.0) g/dl Hct (42-52) % MCV (80-94) fL MCH (27-31) pg MCHC (31-36) g/dl RDW (10.5-15) % Plt Count (150-450) 10^3/ul MPV (7.4-10.4) um3 Neut % (Auto) (38-83) % Lymph % (Auto) (25-47) % Harvey % (Auto) (1-9) % Eos % (Auto) (0-6) % Baso % (Auto) (0-2) % Absolute Neuts (auto) (1.5-7.7) 10^3/ul Absolute Lymphs (auto) (1.0-4.8) 10^3/ul Absolute Monos (auto) (0-0.8) 10^3/ul Absolute Eos (auto) (0-0.6) 10^3/ul Absolute Basos (auto) (0-0.2) 10^3/ul Absolute Nucleated RBC 10^3/ul Nucleated RBC % INR (Anticoag Therapy) 1.10 (0.89-1.11) APTT 32.8 (26.0-36.3) seconds D-Dimer, Quantitative 1013 H (Less Than 230) ng/mL ABG pH 7.36 (7.35-7.45) ABG pCO2 57 H (35-45) mmHg ABG pO2 328 H (80-100) mmHg ABG HCO3 29.4 (19-31) mmol/L ABG O2 Saturation 99.9 H (95-98) % ABG Base Excess 5.7 H (-2.0-2.0) Sodium (133-145) mmol/L Potassium (3.5-5.0) mmol/L Chloride (101-111) mmol/L Carbon Dioxide (22-32) mmol/L Anion Gap (2-11) mmol/L BUN (6-24) mg/dL Creatinine (0.67-1.17) mg/dL Est GFR ( Amer) (>60) Est GFR (Non-Af Amer) (>60) BUN/Creatinine Ratio (8-20) Glucose (70-100) mg/dL Lactic Acid (0.5-2.0) mmol/L Calcium (8.6-10.3) mg/dL Magnesium (1.9-2.7) mg/dL Total Bilirubin (0.2-1.0) mg/dL AST (13-39) U/L ALT (7-52) U/L Alkaline Phosphatase (34-104) U/L Total Creatine Kinase (10-223) U/L CK-MB (CK-2) (0.6-6.3) ng/mL Troponin I (<0.04) ng/mL C-Reactive Protein (< 5.00) mg/L B-Natriuretic Peptide 106 H ( - 100) pg/mL Total Protein (6.4-8.9) g/dL Albumin (3.2-5.2) g/dL Globulin (2-4) g/dL Albumin/Globulin Ratio (1-3) Lipase (11.0-82.0) U/L TSH (0.34-5.60) mcIU/mL 07/25/17 07/25/17 07/25/17 Range/Units 16:36 16:36 16:36 WBC 9.4 (3.5-10.8) 10^3/ul RBC 3.31 L (4.0-5.4) 10^6/ul Hgb 9.4 L (14.0-18.0) g/dl Hct 29 L (42-52) % MCV 88 (80-94) fL MCH 29 (27-31) pg MCHC 33 (31-36) g/dl RDW 18 H (10.5-15) % Plt Count 54 L (150-450) 10^3/ul MPV 8 (7.4-10.4) um3 Neut % (Auto) 84.6 H (38-83) % Lymph % (Auto) 5.4 L (25-47) % Harvey % (Auto) 8.9 (1-9) % Eos % (Auto) 0.7 (0-6) % Baso % (Auto) 0.4 (0-2) % Absolute Neuts (auto) 8.0 H (1.5-7.7) 10^3/ul Absolute Lymphs (auto) 0.5 L (1.0-4.8) 10^3/ul Absolute Monos (auto) 0.8 (0-0.8) 10^3/ul Absolute Eos (auto) 0.1 (0-0.6) 10^3/ul Absolute Basos (auto) 0 (0-0.2) 10^3/ul Absolute Nucleated RBC 0.01 10^3/ul Nucleated RBC % 0.1 INR (Anticoag Therapy) (0.89-1.11) APTT (26.0-36.3) seconds D-Dimer, Quantitative (Less Than 230) ng/mL ABG pH (7.35-7.45) ABG pCO2 (35-45) mmHg ABG pO2 (80-100) mmHg ABG HCO3 (19-31) mmol/L ABG O2 Saturation (95-98) % ABG Base Excess (-2.0-2.0) Sodium 133 (133-145) mmol/L Potassium 5.5 H (3.5-5.0) mmol/L Chloride 99 L (101-111) mmol/L Carbon Dioxide 33 H (22-32) mmol/L Anion Gap 1 L (2-11) mmol/L BUN 66 H (6-24) mg/dL Creatinine 1.78 H (0.67-1.17) mg/dL Est GFR ( Amer) 47.4 (>60) Est GFR (Non-Af Amer) 36.9 (>60) BUN/Creatinine Ratio 37.1 H (8-20) Glucose 245 H (70-100) mg/dL Lactic Acid 1.1 (0.5-2.0) mmol/L Calcium 8.9 (8.6-10.3) mg/dL Magnesium 1.6 L (1.9-2.7) mg/dL Total Bilirubin 1.00 (0.2-1.0) mg/dL AST 35 (13-39) U/L ALT 31 (7-52) U/L Alkaline Phosphatase 158 H (34-104) U/L Total Creatine Kinase 43 (10-223) U/L CK-MB (CK-2) 4.9 (0.6-6.3) ng/mL Troponin I 0.03 (<0.04) ng/mL C-Reactive Protein 47.73 H (< 5.00) mg/L B-Natriuretic Peptide ( - 100) pg/mL Total Protein 6.3 L (6.4-8.9) g/dL Albumin 2.6 L (3.2-5.2) g/dL Globulin 3.7 (2-4) g/dL Albumin/Globulin Ratio 0.7 L (1-3) Lipase 50 (11.0-82.0) U/L TSH 2.58 (0.34-5.60) mcIU/mL Result Diagrams: 07/25/17 16:36 07/25/17 16:36 Lab Statement: Any lab studies that have been ordered have been reviewed, and results considered in the medical decision making process. - Radiology CXR Radiology Interpretation Completed By: Radiologist - RIGHT UPPER LOBE AND LEFT BASILAR INFILTRATE UNCHANGED SINCE PREVIOUS EXAM. ED physician has reviewed this radiology report and agrees. - CT Chest/Thorax CTA CT Interpretation Completed By: Radiologist - NO PULMONARY EMBOLUS IS NOTED. AIRSPACE DISEASE WITH NODULAR AND CYSTIC CHANGE IN THE RIGHT UPPER LOBE AND NODULAR CHANGE IN THE LINGULA WHICH MAY REPRESENT INFLAMMATORY CHANGES OR NEOPLASTIC CHANGES. CIRRHOSIS OF LIVER WITH ASCITES. ED physician has reviewed this radiology report and agrees. Brain CT Interpretation Completed By: Radiologist - Atrophy. There is no evidence of intracranial mass or hemorrhage. ED physician has reviewed this radiology report and agrees. - EKG 1604 Cardiac Rate: NL - 63 bpm EKG Rhythm: Sinus Rhythm ST Segment: Normal Course/Dx - Course Course Of Treatment: ADMIT HOSPITALIST TO ICU - Diagnoses Provider Diagnoses: Altered mental state, Dyspnea, Weakness - Physician Notifications Discussed Care of Patient With: Cynthia Elkins Time Discussed With Above Provider: 17:35 Instructed by Provider To: Other - Consulted with Cynthia Elkins who will evaluate in the ED and recommends a Head CT and CTA Chest. Dicussed care of pt with Dr. Davies, his PCP, who states that they are most concerned about the confusion. - Critical Care Time Critical Care Time: 30-74 min Discharge - Discharge Plan Condition: Guarded Disposition: ADMITTED TO [facility] The documentation as recorded by the Yuri baird Nikita accurately reflects the service I personally performed and the decisions made by me, Donaldo Arriaga MD.
[2017-07-25] MEDS: Albuterol/Ipratropium NEB.SOL* Albuterol 2.5 MG/Ipratropium 0.5 MG 3 ML INH SCH (22:41)
--- NOTE | 2017-07-25 23:22 | HP ---
CC: Dr. Davies * HISTORY AND PHYSICAL: DATE OF ADMISSION: 07/25/17 PRIMARY CARE PROVIDER: Dr. Davies. MY ATTENDING WHILE IN THE HOSPITAL: Wild Cruz MD * (DICTATED BY ALMA LUCIA) CHIEF COMPLAINT: Worsening shortness of breath. HISTORY OF PRESENT ILLNESS: Mr. Mcmanus is an 81-year-old male with past medical history significant for COPD, cirrhosis, diabetes mellitus type 2, chronic kidney disease, hypertension, hyperlipidemia, bronchiectasis, and a lung mass diagnosed in 2011, who presents with 2 days of worsening shortness of breath after finishing antibiotics, which he was prescribed after admission here at this hospital on 07/17/17 and discharged on 07/19/17. The patient states he has felt a little better since he left and then started feeling worse over the last 2 days. The patient is somewhat drowsy and oriented only to person and place. The patient does not remember being admitted to the hospital for pneumonia. Per the nurse, the patient's states that he had been getting worse for the last 2 days and that is why she called EMS to bring him in. Review of past records shows that on the day of his discharge, his sputum culture grew Achromobacter xylosoxidans, which was susceptible only to meropenem. It was not noted whether or not this information was relayed along to the patient but his discharge antibiotics would not cover this bacterium. Patient denies any shortness of breath, palpitations, abdominal pain, swelling in his legs, or changes in his urine. Patient is on 40 L of 40% oxygen at the time of this dictation. It is unclear whether or not this level of oxygen is needed at this time. Patient states that he has been coughing frequently and bringing up occasional white sputum that never has any color or blood. PAST MEDICAL HISTORY: COPD, cirrhosis, hepatorenal syndrome, thrombocytopenia, diabetes mellitus type 2, chronic kidney disease, hypertension, chronic anemia hyperlipidemia, GERD, bronchiectasis and a lung mass since 2011. MEDICATIONS: 1. ProAir every 4 hours. 2. NPH insulin 10 units b.i.d. 3. Nadolol 20 mg p.o. daily. 4. Prilosec 20 mg p.o. daily. 5. Spiriva 1 inhalation cap daily. 6. Lasix 20 mg daily. 7. Spironolactone 25 mg p.o. daily. 8. Ferrous sulfate 325 mg p.o. daily. 9. Vitamin C 500 mg p.o. daily. Patient recently finished a 5-day course of cefpodoxime 200 mg b.i.d. and azithromycin 500 mg daily. FAMILY HISTORY: Significant for CAD, CVA, hypertension, diabetes mellitus type 2 per previous history and physical. SOCIAL HISTORY: Former smoker, former drinker. No recreational drugs. Lives with his , who is housebound who confirmed at the time of this admission that the patient would like to be a DNR/DNI. REVIEW OF SYSTEMS: Patient denies fevers, chills, nausea, vomiting, diarrhea, constipation, hematuria, weakness, hemoptysis. PHYSICAL EXAMINATION GENERAL APPEARANCE: Patient is pale, lethargic, rarely opens his eyes, lying in the emergency department stretcher, in mild distress. VITAL SIGNS: Blood pressure 146/87, heart rate 55, temperature 98, respiratory rate 12, O2 saturation 100% on 40 L at 40% oxygen. HEENT: Sclerae anicteric. Pharynx not erythematous. Mucosa moist. NECK: Supple. No lymphadenopathy. RESPIRATORY: Wheezes heard in all lung feldman, most prominently on the right side in the upper lobe. No accessory muscle usage. Moderate dyspnea. CARDIAC: Regular rate and rhythm. No clicks, murmurs, gallops, or rubs. Posterior tibialis and dorsalis pedis pulses +2 bilaterally. ABDOMEN: Tense, warm, dull to percussion. Bowel sounds present in all 4 quadrants and hypoactive. No abdominal bruits heard. Liver edge felt approximately 10 cm below the rib margin. GENITOURINARY: No suprapubic tenderness. No CVA tenderness. NEUROLOGIC: Cranial nerves II through XII grossly intact. Patient unable to cooperate fully with exam. No facial droop noted. Associate Professor Of Management strength preserved. SKIN: Patient's skin is dark, somewhat mottled. There is an open wound with a bandage on his right upper thomasno as well as some bruises on his knees and one scab on his left knee, all consistent with a previous fall. DIAGNOSTIC STUDIES/LAB DATA: White blood cell count 9.4, hemoglobin 9.4, hematocrit 29, RDW 18, platelet count 54,000, neutrophils 84.6%. INR 1.1. D- dimer 1013. ABG: pH 7.36, pCO2 57, pO2 328, bicarbonate 29.4, O2 saturation 99.9%, base access 5.7. Sodium 133, potassium 5.5, chloride 99, carbon dioxide 33, anion gap 1, BUN 66, creatinine 1.78, glucose 245, magnesium 1.6. Alkaline phosphatase 1.58. ALT 31, AST 35, CRP 47, BNP 106, albumin 2.6, total protein 6.3. Ammonia level 23. Chest x-ray read as right upper lobe and left basilar infiltrate, unchanged since previous exam. Chest thorax CTA read as no pulmonary embolus, airspace disease with nodule and cystic change in the right upper lobe and nodular change in the lingula, which may represent inflammatory changes or neoplastic changes, cirrhosis of the liver with ascites. Brain CT read as atrophy. No evidence of intracranial mass or hemorrhage. EKG, normal sinus rhythm, no STEMI. Nothing else of note. IMPRESSION: The patient is an 81-year-old male who is very sick with multiple complaints including possible pneumonia, known right upper lobe mass, chronic obstructive pulmonary disease, diabetes, cirrhosis and thrombocytopenia, who presents today with worsening dyspnea of unknown cause. We will admit to hospital into the intensive care unit for antibiotics and other supportive measures. 1. Pneumonia, chronic obstructive pulmonary disease exacerbation, possible lung neoplasm: Patient has a known lung mass back as far as 2011. A search of history did not reveal any positive histology indicating what it might be. Patient has wheezes in his lungs indicating possible chronic obstructive pulmonary disease exacerbation and a sputum culture from his last admission showed Achromobacter xylosoxidans, which is resistant to all of the antibiotics he received at his last admission. Given these 3 factors, it is difficult to tell at this time which is causing the increase in dyspnea. It is probably a combination of the three. We will treat for chronic obstructive pulmonary disease exacerbation with antibiotics and prednisone 40 mg daily as well as DuoNeb every 4 hours and albuterol every 2 hours as needed. We will start on meropenem as this is the only antibiotic that Achromobacter xylosoxidans is susceptible to. We will consult Infectious Disease. We will also start on vancomycin for possible MRSA infection. Will check a CBC in the morning. 2. Diabetes mellitus type 2: Started on NPH 5 units b.i.d. while in the hospital and a low-dose sliding scale based on weight. We will reassess in the morning for blood sugar control. It is unknown whether the patient will be able to eat adequately, though he states that he can. 3. Cirrhosis: Ammonia level 23. This is unlikely the cause of his altered mental status. Liver enzymes normal, which might indicate advanced cirrhosis. We will monitor BMP in the morning. We will hold diuretics at this time due to kidney failure. I will also check an INR in the morning. 4. Chronic kidney disease, stage 4: Patient has advanced chronic kidney disease, which is being worsened by his concomitant infection. We will start on fluids 75 mL an hour. We will monitor BMP in the morning. 5. Thrombocytopenia: Pharmacologic DVT prophylaxis avoided due to risk of heparin- induced thrombocytopenia exacerbating low platelet levels. 6. Anemia: Chronic. Patient's anemia appears to be related to iron deficiency and he was started on ferrous sulfate and vitamin C. On his last admission, patient had chronic GI bleed, which he does not want to address. We will continue on ferrous sulfate and vitamin C to avoid worsening anemia while in the hospital. 7. Hypertension: We will restart home nadolol for hypertensive control. 8. Code status: The patient is a DNR per his , who is also his healthcare proxy. Her name is Arcelia Mcmanus. 9. FEN: Patient will be on a low-protein, consistent carbohydrate diet with maintenance fluids at 75 mL an hour. 10. DVT prophylaxis: SCDs while in bed. Patient up with assistance. Heparin contraindicated due to platelet level. DISPOSITION: Patient is admitted to the ICU. TIME SPENT: An hour and 15 minutes was spent on this admission to half an hour of which was spent talking to the patient and obtaining physical exam. The plan of care was discussed with my attending, Dr. Wild Cruz, and he is in agreement. ALMA LUCIA [id number]/[facility] #: [id number] ALEXUS
[2017-07-25] MEDS: Meropenem 1 GM PREMIX(*) 1 GM/50 ML BAG IV SCH (23:37)
[2017-07-26] MEDS: Albuterol/Ipratropium NEB.SOL* Albuterol 2.5 MG/Ipratropium 0.5 MG 3 ML INH SCH ×6 (03:57→23:26)
[2017-07-26 06:06] LABS: Hematocrit 24 % (42-52); Hemoglobin 7.9 g/dl (14.0-18.0); Mean Corpuscular HGB Conc 32 g/dl (31-36); Mean Corpuscular Hemoglobin 28 pg (27-31); Mean Corpuscular Volume 88 fL (80-94); Mean Platelet Volume 9 um3 (7.4-10.4); Red Blood Count 2.79 10^6/ul (4.0-5.4); Red Cell Distribution Width 17 % (10.5-15); White Blood Count 3.5 10^3/ul (3.5-10.8)
[2017-07-26 06:07] LABS: Comments Flag Yes
[2017-07-26 06:32] LABS: Albumin 2.1 g/dL (3.2-5.2); BUN/Creatinine Ratio 42.9 (8-20); Calcium 8.4 mg/dL (8.6-10.3); EGFR African American 52.5 (>60); EGFR Non-African American 40.8 (>60); Total Protein 5.1 g/dL (6.4-8.9)
[2017-07-26 06:35] LABS: Potassium 6.1 mmol/L (3.5-5.0)
[2017-07-26] MEDS: Nadolol TAB* 40 MG PO SCH (07:48)
[2017-07-26] MEDS: Omeprazole CAP* 20 MG PO SCH (07:48)
[2017-07-26] MEDS: Ascorbic Acid TAB* 500 MG PO SCH (07:49)
[2017-07-26] MEDS: Ferrous Sulfate TAB* 325 MG PO SCH (07:49)
[2017-07-26] MEDS: predniSONE TAB* 20 MG PO SCH (07:50)
[2017-07-26] MEDS: Insulin LISPRO* 1 UNITS UNIT SUBCUT SCH ×3 (07:51→16:50)
[2017-07-26] MEDS: Insulin NPH(*) 1 UNITS UNIT SUBCUT SCH ×2 (07:51→15:36)
[2017-07-26] MEDS ORDERED: Vancomycin(*) 0 MG in NS 0.9% 250 ML* 250 ML IVPB SCH (08:00)
[2017-07-26] MEDS ORDERED: Sodium Polystyrene ORAL.SOL* 15 GM/60 ML BTL PO ONE ×2 (08:11→14:55)
[2017-07-26] MEDS ORDERED: Vancomycin per Pharmacy* NOTE FOLLOW UP PRN (08:59)
[2017-07-26] MEDS ORDERED: Furosemide TAB* 20 MG PO SCH (09:00)
[2017-07-26] MEDS ORDERED: Albuterol/Ipratropium NEB.SOL* Albuterol 2.5 MG/Ipratropium 0.5 MG 3 ML INH PRN (09:20)
--- NOTE | 2017-07-26 09:30 | PN ---
Subjective Date of Service: 07/26/17 Interval History: This is an 81 yo gentleman with multiple chronic medical problems that was recently discharged for treatment of COPD exacerbation and PNA who was readmitted last night with complaints of increasing SOB. He recently completed a course of cefpodoxime and azithromycin. Prior sputum grew Achromobacter sensitive only meropenem. Patient was admitted to ICU due to his high O2 requirements at admission with vanco and meropenem started empirically. He has been titrated down to 2L overnight. Patient continues with a frequent productive cough, but reports some improvement in dyspnea. No c/o abd pain, CP, n/v. Objective Active Medications: Albuterol/Ipratropium (Duoneb (Albuterol 2.5 Mg/Ipratropium 0.5 Mg)) 1 neb INH [id number] AWAKE [facility] Last Admin: 07/26/17 07:29 Dose: 1 neb Albuterol/Ipratropium (Duoneb (Albuterol 2.5 Mg/Ipratropium 0.5 Mg)) 1 neb INH Q4H PRN PRN Reason: SOB/WHEEZING Ascorbic Acid (Vitamin C Tab*) 500 mg PO DAILY [facility] Last Admin: 07/26/17 07:49 Dose: 500 mg Dextrose (D50w Syringe 50 Ml*) 12.5 gm IV PUSH .FOR FS < 60 - SS PRN PRN Reason: FS < 60 Ferrous Sulfate (Ferrous Sulfate Tab*) 325 mg PO DAILY [facility] Last Admin: 07/26/17 07:49 Dose: 325 mg Sodium Chloride (Ns 0.9% 1000 Ml*) 1,000 mls @ 75 mls/hr IV PER RATE [facility] Last Admin: 07/25/17 21:43 Dose: 75 mls/hr Meropenem (Merrem 1 Gm Premix(*)) 1 gm in 50 mls @ 100 mls/hr IV Q12H [facility] Last Admin: 07/25/17 23:37 Dose: 100 mls/hr Vancomycin HCl 500 mg/ Sodium (Chloride) 250 mls @ 166.667 mls/hr IVPB Q12H [facility] Insulin Human Lispro (Humalog*) 0 units SUBCUT AC [facility] PRN Reason: Protocol Last Admin: 07/26/17 07:51 Dose: 4 units Insulin Human NPH (Insulin Nph(*)) 5 units SUBCUT 0700,1500 [facility] Last Admin: 07/26/17 07:51 Dose: 5 units Nadolol (Corgard Tab*) 20 mg PO DAILY [facility] Last Admin: 07/26/17 07:48 Dose: 20 mg Nystatin (Nystatin Cream*) 1 applic TOPICAL BID [facility] Omeprazole (Prilosec Cap*) 20 mg PO DAILY@0730 [facility] Last Admin: 07/26/17 07:48 Dose: 20 mg Pharmacy Consult (Vancomycin Per Pharmacy*) 1 note FOLLOW UP . PRN PRN Reason: PER PROTOCOL Pharmacy Profile Note (Vancomycin Trough Check) 1 note FOLLOW UP 929 ONE Stop: 07/27/17 09:31 Prednisone (Deltasone Tab*) 40 mg PO DAILY WITH MEAL [facility] Last Admin: 07/26/17 07:50 Dose: 40 mg Tiotropium Fisher (Spiriva Cap.Inh*) 1 cap INH DAILY [facility] Vital Signs: Temp Pulse Resp BP Pulse Ox 97.9 F 49 19 127/49 98 07/26/17 08:30 07/26/17 08:30 07/26/17 09:00 07/26/17 08:30 07/26/17 08:30 Oxygen Devices in Use Now: Nasal Cannula Appearance: Elderly gentleman with freq productive cough who appears mildly uncomfortable Respiratory: Symmetrical Chest Expansion and Respiratory Effort, - - diffuse rhonchi Cardiovascular: RRR Abdominal: NL Sounds; No Tenderness; No Distention Extremities: - - 1+ LE edema Skin: - - extensive ecchymosis with a few open areas over lower legs Neurological: Alert and Oriented x 3 Result Diagrams: 07/26/17 05:45 07/26/17 05:45 Additional Lab and Data: . Microbiology and Other Data: Microbiology 07/25/17 23:00 Nasal Screen MRSA (PCR)(MARIAH) - Final Nasal Mrsa Negative 07/25/17 22:00 Legionella Urinary Antigen - Final Urine Negative Legionella Streptococcus pneumoniae Ag Screen - Final Negative S. pneumo Antigen Diagnostic Imaging: CXR - RML and LLL infiltrate, unchanged from prior CTA chest - no PE, nodular infiltrate in RUL and LLL, liver cirrhosis with associated ascites Assess/Plan/Problems-Billing Assessment: This is an 81 yo gentleman who was recently treated for PNA and COPD exacerbation with IDDM, CKD, HTN, HLD, bronchiectasis, liver cirrhosis, known prior lung mass without known pathology and chronic GI bleed which patient has chosen not to definitively address who returns with c/o increasing SOB and cough with persistent PNA noted on CXR and CT. - Patient Problems (1) Pneumonia Comment: Recurrent/persistent PNA after failure of cefpodoxime and azithromycin with Achromobacter on prior sputum culture sensitive only to carbapenems Empirically started on Vanco and meropenem Repeat blood and sputum cultures pending ID consultation pending Some clinical improvement noted today with improved FiO2 requirements (2) COPD exacerbation Comment: Secondary to PNA Improved FiO2 requirements Cont DuoNebs, corticosteroids, Dulera and Spiriva (3) Hyperkalemia Comment: Perhaps due to his renal disease Cont to treat medically Received insulin this am and one dose of kayexalate No changes on telemetry Repeat BMP ordered for noon (4) Cirrhosis Comment: Associated chronic thrombocytopenia and slight coagulopathy No evidence of acute dysfunction Associated ascites Cont Lasix, but holding spironolactone due to hyperkalemia (5) Type 2 diabetes mellitus Comment: Cont home insulin which includes bid NPH and SS humalog with meals (6) Chronic anemia Comment: Iron deficient Perhaps related to chronic disease Reported h/o chronic GI bleed which patient has chosen not to pursue further evaluation for (7) HTN (hypertension) Comment: Normotensive Cont nadolol (8) Chronic renal insufficiency Comment: Stage III-IV Stable (9) DVT prophylaxis Comment: SCDs, heparin products held due to thrombocytopenia and chronic GI bleed (10) DNR (do not resuscitate) Comment: MOLST on file Status and Disposition: Inpatient. Patient can be transferred to telemetry unit from ICU. Pending palliative care referral as patient prefers limited interventions and has had frequent hospital stays with multiple chronic diseases.
[2017-07-26 09:41] LABS: Magnesium 1.9 mg/dL (1.9-2.7)
[2017-07-26] MEDS ORDERED: Vancomycin(*) 500 MG in NS 0.9% 250 ML* 250 ML IVPB SCH ×4 (10:00)
[2017-07-26] MEDS: Nystatin CREAM* 15 GM TUBE TOPICAL SCH ×2 (10:42→20:18)
[2017-07-26] MEDS: Meropenem 1 GM PREMIX(*) 1 GM/50 ML BAG IV SCH (11:18)
[2017-07-26] MEDS: Mometasone/Formoter 200/5 MDI INH SCH ×2 (11:34→20:00)
[2017-07-26] MEDS: NS 0.9% 1000 ML* 1,000 ML IV SCH (13:09)
[2017-07-26] MEDS: cefTRIAXone VIAL(*) 1,000 MG in NS 0.9% 50 ML* 50 ML IVPB SCH (14:33)
[2017-07-26 14:49] LABS: BUN/Creatinine Ratio 43.6 (8-20); Calcium 8.4 mg/dL (8.6-10.3); EGFR African American 52.5 (>60); EGFR Non-African American 40.8 (>60); Potassium 5.5 mmol/L (3.5-5.0)
--- NOTE | 2017-07-26 20:58 | CONS ---
CONSULTATION REPORT: DATE OF CONSULT: 07/26/17 REQUESTING PROVIDER: ALMA Pearson CONSULTING SERVICE: Infectious Disease. REASON FOR CONSULT: Cough, pneumonia. IMPRESSION: 1. Recent admission for pneumonia with right upper lobe and left lingular infiltrate, improved on antibiotics, but did not cover the achromobacter that grew, achromobacters often colonization of abnormal airways, which he definitely has. It can be pathogenic, though I think it is less likely in his case, improved without covering it before. He returns now with a couple of days' worth worsening dyspnea and cough after stopping antibiotics. He has the ongoing right upper lobe infiltrate as well as the lingular infiltrate. They may be unrelated to his current presentation and could be a more chronic infection or malignancy. Nontuberculous mycobacterial infection is a consideration. 2. Chronic kidney disease. 3. Cirrhosis with hepatorenal syndrome. 4. Bronchiectasis. 5. Lung mass. RECOMMENDATION: Ceftriaxone and azithromycin. We will await sputum culture results. Corticosteroids and nebulizers per the primary team. HISTORY OF PRESENT ILLNESS: An 81-year-old male with COPD and bronchiectasis as well as cirrhosis, admitted with cough. He cannot give much of the history, which is obtained instead from the review of the medical records. Apparently, his felt his cough and dyspnea were getting worse over the last couple of days after finishing antibiotics, which were prescribed by hospital here. He had been in the hospital from 07/17/17 to 07/19/17. He had right upper lobe and lingular infiltrates on x-ray. When he came back, they were seen again on x -ray. A CT was done that confirmed their presence, did not clarify much otherwise. He had no pulmonary embolism though. Today, his cough is about the same. Sputum sample is pending. He has some shortness of breath. He was 95% on room air and 99% on 2 L. He has no chest pain, no pain anywhere. He is not entirely clear why he is here today. Sputum culture from his last admission grew achromobacter, which resulted after he left. PAST MEDICAL HISTORY: 1. COPD. 2. Cirrhosis with hepatorenal syndrome. 3. Thrombocytopenia. 4. Type 2 diabetes. 5. Chronic kidney disease. 6. Hypertension. 7. Anemia. 8. Hyperlipidemia. 9. Gastroesophageal reflux disease. 10. Bronchiectasis and lung mass. MEDICATIONS: 1. Albuterol inhaler. 2. Vitamin C. 3. Ferrous sulfate. 4. Insulin NPH. 5. Nystatin ointment. 6. Omeprazole. 7. Meropenem. 8. Vancomycin. 9. Prednisone 40 mg a day. ALLERGIES: RED DYE. FAMILY HISTORY: Coronary artery disease and stroke. SOCIAL HISTORY: He lives in [place]. No travel. No sick contacts. REVIEW OF SYSTEMS: All negative to full review of systems except as noted above. PHYSICAL EXAM: Vital Signs: Temperature 36.5, heart rate 60, respiratory rate 16, blood pressure 110/56, and O2 sat 99% on room air. In general, he is awake and not in distress. Neurologic: He is oriented x3. Follows all commands. Moves all 4 extremities. HEENT: There is no conjunctival hemorrhage. Oropharynx without lesions. Neck is supple without nuchal rigidity. Lymph Nodes: No inguinal, axillary, or epitrochlear lymphadenopathy. Heart has regular rate and rhythm without murmurs, rubs, or gallops. Lungs: No wheezes, rales, or rhonchi. Abdomen: Soft, nontender, and nondistended. There are bowel sounds present. Skin: There is no rash or splinter hemorrhages. Musculoskeletal: There is no spine tenderness to palpation. No joint synovitis. LABORATORY DATA: White blood cell count 3.5, hemoglobin , MCV 88, platelets 43,000. Creatinine is 1.6. CRP was 47. Please see impressions and recommendations outlined above. Thank you for asking me to see Mr. Mcmanus in consultation. [id number]/[facility] #: [id number] ALEXUS
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
[2017-07-27] MEDS: Albuterol/Ipratropium NEB.SOL* Albuterol 2.5 MG/Ipratropium 0.5 MG 3 ML INH SCH ×6 (03:15→22:52)
[2017-07-27] MEDS: NS 0.9% 1000 ML* 1,000 ML IV SCH (03:53)
[2017-07-27 06:12] LABS: Comments Flag Yes; Hematocrit 26 % (42-52); Hemoglobin 8.4 g/dl (14.0-18.0); Mean Corpuscular HGB Conc 33 g/dl (31-36); Mean Corpuscular Hemoglobin 29 pg (27-31); Mean Corpuscular Volume 88 fL (80-94); Mean Platelet Volume 9 um3 (7.4-10.4); Red Blood Count 2.91 10^6/ul (4.0-5.4); Red Cell Distribution Width 17 % (10.5-15); White Blood Count 5.4 10^3/ul (3.5-10.8)
[2017-07-27 06:41] LABS: BUN/Creatinine Ratio 48.6 (8-20); Calcium 8.7 mg/dL (8.6-10.3); EGFR African American 62.6 (>60); EGFR Non-African American 48.6 (>60); Potassium 5.1 mmol/L (3.5-5.0)
[2017-07-27] MEDS: Tiotropium CAP.INH* CAP.INH/18 MCG (USE ORDER SET !) INH SCH (08:22)
[2017-07-27] MEDS: Mometasone/Formoter 200/5 MDI INH SCH ×2 (08:23→20:01)
[2017-07-27] MEDS ORDERED: Spiriva Inhaler DEVICE* 1 EACH DEVICE INH ONE (09:00)
[2017-07-27] MEDS: Omeprazole CAP* 20 MG PO SCH (09:24)
[2017-07-27] MEDS: predniSONE TAB* 20 MG PO SCH (09:24)
[2017-07-27] MEDS: Insulin NPH(*) 1 UNITS UNIT SUBCUT SCH ×2 (09:24→17:32)
[2017-07-27] MEDS: Insulin LISPRO* 1 UNITS UNIT SUBCUT SCH ×3 (09:24→17:33)
[2017-07-27] MEDS: Ascorbic Acid TAB* 500 MG PO SCH (09:25)
[2017-07-27] MEDS: Ferrous Sulfate TAB* 325 MG PO SCH (09:25)
[2017-07-27] MEDS: Azithromycin TAB* 250 MG PO SCH (09:25)
[2017-07-27] MEDS: Nadolol TAB* 40 MG PO SCH (09:28)
[2017-07-27] MEDS ORDERED: Vancomycin Trough Check NOTE FOLLOW UP ONE ×2 (09:30)
--- NOTE | 2017-07-27 11:21 | PN ---
Subjective Date of Service: 07/27/17 Interval History: Patient seen and examined at bedside. Pt states that he is feeling well. Denies fever, chills, shortness of breath, chest discomfort, N/V/D. Tele: Sinus rhythm, rate 60-70's. Family History: Unchanged from Admission Social History: Unchanged from Admission Past Medical History: Unchanged from Admission Objective Active Medications: Albuterol/Ipratropium (Duoneb (Albuterol 2.5 Mg/Ipratropium 0.5 Mg)) 1 neb INH [id number] AWAKE [facility] Albuterol/Ipratropium (Duoneb (Albuterol 2.5 Mg/Ipratropium 0.5 Mg)) 1 neb INH Q4H PRN Reason: SOB/WHEEZING Ascorbic Acid (Vitamin C Tab*) 500 mg PO DAILY [facility] Azithromycin (Zithromax Tab*) 500 mg PO DAILY [facility] Dextrose (D50w Syringe 50 Ml*) 12.5 gm IV PUSH .FOR FS < 60 - SS PRN Reason: FS < 60 Ferrous Sulfate (Ferrous Sulfate Tab*) 325 mg PO DAILY [facility] Sodium Chloride (Ns 0.9% 1000 Ml*) 1,000 mls @ 75 mls/hr IV PER RATE [facility] Ceftriaxone Sodium 1,000 mg/ (Sodium Chloride) 50 mls @ 200 mls/hr IVPB Q24H [facility] Insulin Human Lispro (Humalog*) 0 units SUBCUT AC [facility] Insulin Human NPH (Insulin Nph(*)) 5 units SUBCUT 0700,1500 [facility] Mometasone Furoate/Formoterol Fumar (Dulera 200/5 Mdi*) 2 puff INH BID [facility] Nadolol (Corgard Tab*) 20 mg PO DAILY [facility] Nystatin (Nystatin Cream*) 1 applic TOPICAL BID [facility] Omeprazole (Prilosec Cap*) 20 mg PO DAILY@0730 [facility] Prednisone (Deltasone Tab*) 40 mg PO DAILY WITH MEAL [facility] Tiotropium [place] (Spiriva Cap.Inh*) 1 cap INH DAILY [facility] Vital Signs 07/26/17 07/26/17 07/26/17 11:30 11:35 12:00 Temperature 97.9 F 97.7 F Pulse Rate 56 55 54 Respiratory 18 18 18 Rate Blood Pressure 151/75 142/60 (mmHg) O2 Sat by Pulse 100 100 99 Oximetry 0807/26/17 07/26/17 12:01 12:30 15:47 Temperature 97.7 F 97.7 F Pulse Rate 59 55 66 Respiratory 18 16 17 Rate Blood Pressure 110/56 (mmHg) O2 Sat by Pulse 99 99 97 Oximetry 07/26/17 07/26/17 07/26/17 15:52 18:56 20:00 Temperature 97.3 F Pulse Rate 63 Respiratory 18 20 16 Rate Blood Pressure 168/52 (mmHg) O2 Sat by Pulse 99 Oximetry 07/26/17 07/27/17 07/27/17 20:02 08:00 08:24 Temperature Pulse Rate 64 63 Respiratory 16 20 14 Rate Blood Pressure (mmHg) O2 Sat by Pulse 99 95 Oximetry 07/27/17 10:59 Temperature Pulse Rate 60 Respiratory 14 Rate Blood Pressure (mmHg) O2 Sat by Pulse 97 Oximetry Oxygen Devices in Use Now: Nasal Cannula Appearance: NAD, sitting up in a chair Ears/Nose/Mouth/Throat: Mucous Membranes Moist Respiratory: Clear to Auscultation - , diminished Cardiovascular: NL Sounds; No Murmurs; No JVD, RRR Abdominal: NL Sounds; No Tenderness; No Distention Extremities: No Edema Skin: No Rash or Ulcers Neurological: Alert and Oriented x 3, NL Muscle Strength and Tone Lines/Tubes/Other Access: Clean, Dry and Intact Peripheral IV - site benign Nutrition: Taking PO's Result Diagrams: 07/27/17 05:52 07/27/17 05:52 Microbiology and Other Data: Microbiology 07/25/17 23:00 Nasal Screen MRSA (PCR)(MARIAH) - Final Nasal Mrsa Negative 07/25/17 22:00 Legionella Urinary Antigen - Final Urine Negative Legionella Streptococcus pneumoniae Ag Screen - Final Negative S. pneumo Antigen Diagnostic Imaging: CXR - RML and LLL infiltrate, unchanged from prior CTA chest - no PE, nodular infiltrate in RUL and LLL, liver cirrhosis with associated ascites Assess/Plan/Problems-Billing Assessment: Mr. Mcmanus is an 81 yo gentleman who was recently treated for PNA and COPD exacerbation with IDDM, CKD, HTN, HLD, bronchiectasis, liver cirrhosis, known prior lung mass without known pathology and chronic GI bleed which patient has chosen not to definitively address who returns with c/o increasing SOB and cough with persistent PNA noted on CXR and CT. - Patient Problems (1) Pneumonia Code(s): J18.9 - PNEUMONIA, UNSPECIFIED ORGANISM SNOMED Code(s): 853727858 Comment: - Recurrent/persistent PNA after failure of cefpodoxime and azithromycin with Achromobacter on prior sputum culture sensitive only to carbapenems - Urine antigens negative for s. pneumo and legionella - Repeat blood cultures no growth day 1 and sputum cultures with Achromobacter - ID consultation, input appreciated - Some clinical improvement noted today with improved FiO2 requirements - Empirically started on Vanco and meropenem, now on ceftriaxone and azithromycin (2) COPD exacerbation Code(s): J44.1 - CHRONIC OBSTRUCTIVE PULMONARY DISEASE W (ACUTE) EXACERBATION SNOMED Code(s): 861391256 Comment: - Secondary to PNA - Improved FiO2 requirements - Continue DuoNebs, corticosteroids, Dulera and Spiriva (3) Hyperkalemia Code(s): E87.5 - HYPERKALEMIA SNOMED Code(s): 51260237 Comment: - Perhaps due to his renal disease - Received insulin this and one dose of kayexalate yesterday am - No changes on telemetry - Continue to treat medically as needed (4) Cirrhosis Comment: - Associated chronic thrombocytopenia and slight coagulopathy - No evidence of acute dysfunction - Associated ascites - Continue Lasix, but holding spironolactone due to hyperkalemia (5) Type 2 diabetes mellitus Comment: - Glucose 230-300's - HgA1C 6.4 on 07/18 - Continue home insulin which includes bid NPH and SS humalog with meals (6) Chronic anemia Code(s): D64.9 - ANEMIA, UNSPECIFIED SNOMED Code(s): 941105236 Comment: - Iron deficient - Perhaps related to chronic disease - Reported h/o chronic GI bleed which patient has chosen not to pursue further evaluation (7) HTN (hypertension) Code(s): I10 - ESSENTIAL (PRIMARY) HYPERTENSION SNOMED Code(s): 15523452 Comment: - Normotensive - Continue nadolol (8) Chronic renal insufficiency Code(s): N18.9 - CHRONIC KIDNEY DISEASE, UNSPECIFIED SNOMED Code(s): 022566001 Comment: - Stage III-IV - Stable (9) Thrombocytopenia Code(s): D69.6 - THROMBOCYTOPENIA, UNSPECIFIED SNOMED Code(s): 406510828 Comment: - Chronic - Secondary to cirrhosis (10) DVT prophylaxis Code(s): WID9075 - SNOMED Code(s): 940103059 Comment: - SCDs, heparin products held due to thrombocytopenia and chronic GI bleed (11) DNR (do not resuscitate) Comment: - MOLST on file Status and Disposition: Inpatient. Pending palliative care referral as patient prefers limited interventions and has had frequent hospital stays with multiple chronic diseases. Pt will need to have SNF placement.
[2017-07-27] MEDS: cefTRIAXone VIAL(*) 1,000 MG in NS 0.9% 50 ML* 50 ML IVPB SCH (13:24)
[2017-07-27] MEDS: Nystatin CREAM* 15 GM TUBE TOPICAL SCH ×2 (13:26→21:53)
[2017-07-28] MEDS: Albuterol/Ipratropium NEB.SOL* Albuterol 2.5 MG/Ipratropium 0.5 MG 3 ML INH SCH ×4 (02:56→15:23)
[2017-07-28 06:56] LABS: BUN/Creatinine Ratio 47.2 (8-20); Calcium 8.5 mg/dL (8.6-10.3); EGFR African American 52.5 (>60); EGFR Non-African American 40.8 (>60); Potassium 4.4 mmol/L (3.5-5.0)
[2017-07-28] MEDS: Mometasone/Formoter 200/5 MDI INH SCH (07:21)
[2017-07-28] MEDS: Tiotropium CAP.INH* CAP.INH/18 MCG (USE ORDER SET !) INH SCH (07:22)
[2017-07-28] MEDS ORDERED: Insulin NPH(*) 1 UNITS UNIT SUBCUT SCH ×2 (07:30→16:30)
[2017-07-28] MEDS: Azithromycin TAB* 250 MG PO SCH (07:44)
[2017-07-28] MEDS: Ascorbic Acid TAB* 500 MG PO SCH (07:44)
[2017-07-28] MEDS: Ferrous Sulfate TAB* 325 MG PO SCH (07:46)
[2017-07-28] MEDS: Omeprazole CAP* 20 MG PO SCH (07:46)
[2017-07-28] MEDS: Nadolol TAB* 40 MG PO SCH (07:46)
[2017-07-28] MEDS: predniSONE TAB* 20 MG PO SCH (07:46)
[2017-07-28] MEDS: Insulin LISPRO* 1 UNITS UNIT SUBCUT SCH ×2 (08:26→13:27)
[2017-07-28] MEDS: Nystatin CREAM* 15 GM TUBE TOPICAL SCH (09:53)
--- NOTE | 2017-07-28 12:37 | PN ---
Subjective Date of Service: 07/28/17 Interval History: Patient seen and examined at bedside. Denies fever, chest discomfort, shortness of breath, N/V/D. Pt states that he is cold. Pt had an occasional non productive cough. Family History: Unchanged from Admission Social History: Unchanged from Admission Past Medical History: Unchanged from Admission Objective Active Medications: Albuterol/Ipratropium (Duoneb (Albuterol 2.5 Mg/Ipratropium 0.5 Mg)) 1 neb INH [id number] AWAKE VANITA Albuterol/Ipratropium (Duoneb (Albuterol 2.5 Mg/Ipratropium 0.5 Mg)) 1 neb INH Q4H PRN Reason: SOB/WHEEZING Ascorbic Acid (Vitamin C Tab*) 500 mg PO DAILY [facility] Azithromycin (Zithromax Tab*) 500 mg PO DAILY [facility] Dextrose (D50w Syringe 50 Ml*) 12.5 gm IV PUSH .FOR FS < 60 - SS PRN Reason: FS < 60 Ferrous Sulfate (Ferrous Sulfate Tab*) 325 mg PO DAILY [facility] Ceftriaxone Sodium 1,000 mg/ (Sodium Chloride) 50 mls @ 200 mls/hr IVPB Q24H [facility] Insulin Human Lispro (Humalog*) 0 units SUBCUT AC VANITA Insulin Human NPH (Insulin Nph(*)) 5 units SUBCUT 0730,1630 [facility] Mometasone Furoate/Formoterol Fumar (Dulera 200/5 Mdi*) 2 puff INH BID VANITA Nadolol (Corgard Tab*) 20 mg PO DAILY [facility] Nystatin (Nystatin Cream*) 1 applic TOPICAL BID VANITA Omeprazole (Prilosec Cap*) 20 mg PO DAILY@0730 VAN[facility] Prednisone (Deltasone Tab*) 40 mg PO DAILY WITH MEAL VANITA Tiotropium [place] (Spiriva Cap.Inh*) 1 cap INH DAILY [facility]ANITA Vital Signs 07/27/17 07/27/17 07/27/17 14:32 15:33 20:00 Temperature 97.7 F Pulse Rate 62 56 105 Respiratory 14 16 18 Rate Blood Pressure 131/60 (mmHg) O2 Sat by Pulse 98 100 96 Oximetry 07/27/17 07/27/17 07/27/17 20:04 22:54 23:56 Temperature 97.7 F 97.8 F Pulse Rate 54 72 Respiratory 18 18 16 Rate Blood Pressure 139/55 146/54 (mmHg) O2 Sat by Pulse 100 98 92 Oximetry 07/28/17 07/28/17 07/28/17 01:09 07:40 07:49 Temperature 97.7 F 97.7 F Pulse Rate 86 84 71 Respiratory 20 21 18 Rate Blood Pressure 136/87 111/45 113/51 (mmHg) O2 Sat by Pulse 94 99 97 Oximetry 07/28/17 07/28/17 08:00 11:52 Temperature 98.0 F Pulse Rate 88 Respiratory 18 16 Rate Blood Pressure 111/46 (mmHg) O2 Sat by Pulse 95 Oximetry Oxygen Devices in Use Now: Nasal Cannula Appearance: NAD, sitting up in a chair Ears/Nose/Mouth/Throat: Mucous Membranes Moist Respiratory: Symmetrical Chest Expansion and Respiratory Effort, Clear to Auscultation - , diminished Cardiovascular: NL Sounds; No Murmurs; No JVD, RRR Abdominal: NL Sounds; No Tenderness; No Distention Extremities: No Edema Skin: No Rash or Ulcers Neurological: NL Muscle Strength and Tone, - - Alert and Oriented to person and place Lines/Tubes/Other Access: Clean, Dry and Intact Peripheral IV - site benign Nutrition: Taking PO's Result Diagrams: 07/27/17 05:52 07/28/17 06:32 Microbiology and Other Data: Microbiology 07/25/17 23:00 Nasal Screen MRSA (PCR)(MARIAH) - Final Nasal Mrsa Negative 07/25/17 22:00 Legionella Urinary Antigen - Final Urine Negative Legionella Streptococcus pneumoniae Ag Screen - Final Negative S. pneumo Antigen Diagnostic Imaging: CXR - RML and LLL infiltrate, unchanged from prior CTA chest - no PE, nodular infiltrate in RUL and LLL, liver cirrhosis with associated ascites Assess/Plan/Problems-Billing Assessment: Mr. Mcmanus is an 81 yo gentleman who was recently treated for PNA and COPD exacerbation with IDDM, CKD, HTN, HLD, bronchiectasis, liver cirrhosis, known prior lung mass without known pathology and chronic GI bleed which patient has chosen not to definitively address who returns with c/o increasing SOB and cough with persistent PNA noted on CXR and CT. - Patient Problems (1) Pneumonia Code(s): J18.9 - PNEUMONIA, UNSPECIFIED ORGANISM SNOMED Code(s): 348758405 Comment: - Recurrent/persistent PNA after failure of cefpodoxime and azithromycin with Achromobacter on prior sputum culture sensitive only to carbapenems - Urine antigens negative for s. pneumo and legionella - Repeat blood cultures no growth day 2 and sputum cultures with Achromobacter - ID consultation, input appreciated - Some clinical improvement noted today with improved FiO2 requirements - Empirically started on Vanco and meropenem, now on ceftriaxone and azithromycin - Plan to change to augmentin (2) COPD exacerbation Code(s): J44.1 - CHRONIC OBSTRUCTIVE PULMONARY DISEASE W (ACUTE) EXACERBATION SNOMED Code(s): 793432429 Comment: - Secondary to PNA - Improved FiO2 requirements, has been on room air - Continue DuoNebs, corticosteroids, Dulera and Spiriva (3) Hyperkalemia Code(s): E87.5 - HYPERKALEMIA SNOMED Code(s): 96022476 Comment: - Resolved - Perhaps due to his renal disease (4) Cirrhosis Comment: - Associated chronic thrombocytopenia and slight coagulopathy - No evidence of acute dysfunction - Associated ascites - Continue Lasix, but holding spironolactone due to hyperkalemia (5) Type 2 diabetes mellitus Comment: - Glucose 240-300's - HgA1C 6.4 on 07/18 - Continue home insulin which includes bid NPH (increased NPH today) and SS humalog with meals (6) Chronic anemia Code(s): D64.9 - ANEMIA, UNSPECIFIED SNOMED Code(s): 559520885 Comment: - Iron deficient - Perhaps related to chronic disease - Reported h/o chronic GI bleed which patient has chosen not to pursue further evaluation (7) HTN (hypertension) Code(s): I10 - ESSENTIAL (PRIMARY) HYPERTENSION SNOMED Code(s): 69649244 Comment: - Normotensive - Continue nadolol (8) Chronic renal insufficiency Code(s): N18.9 - CHRONIC KIDNEY DISEASE, UNSPECIFIED SNOMED Code(s): 936837973 Comment: - Stage III-IV - Stable (9) Thrombocytopenia Code(s): D69.6 - THROMBOCYTOPENIA, UNSPECIFIED SNOMED Code(s): 714317315 Comment: - Chronic - Secondary to cirrhosis (10) DVT prophylaxis Code(s): HIR8642 - SNOMED Code(s): 716534790 Comment: - SCDs, heparin products held due to thrombocytopenia and chronic GI bleed (11) DNR (do not resuscitate) Comment: - MOLST on file Status and Disposition: Inpatient. Pending palliative care referral as patient prefers limited interventions and has had frequent hospital stays with multiple chronic diseases. Pt will need to have SNF placement.
[2017-07-28 16:00] VITALS: BP 124/51
[2017-07-28] MEDS ORDERED: Amoxicillin/Clavulanate TAB* 875 MG PO SCH (21:00)
--- NOTE | 2017-07-28 21:32 | DS ---
CC: Pao Davies MD* DISCHARGE SUMMARY: DATE OF ADMISSION: 07/25/17 DATE OF DISCHARGE: 07/28/17 ATTENDING PHYSICIAN: Gopal Hill MD * (dictated by Shanel Nguyen NP) PRIMARY CARE PROVIDER: Pao Davies MD PRIMARY DIAGNOSES: 1. Recurrent back/persistent pneumonia. 2. Chronic obstructive pulmonary disease exacerbation. 3. Hyperkalemia, resolved. SECONDARY DIAGNOSES: 1. Cirrhosis. 2. Diabetes mellitus, type 2. 3. Chronic anemia. 4. Hypertension. 5. Chronic renal insufficiency. 6. Chronic thrombocytopenia. CONSULTATIONS WHILE IN THE HOSPITAL: 1. Dr. Higinio Vázquez with Infectious Disease. 2. Dr. Makenzie Lamar with palliative care services. STUDIES WHILE IN THE HOSPITAL: 1. Chest x-ray on 07/25/17. Radiologist's impression: Right upper lobe and left basilar infiltrate, unchanged since previous exam. 2. Brain CT on 07/25/17. Radiologist's impression: Atrophy. There is no evidence for intracranial mass or hemorrhage. 3. Chest thoracic CTA on 07/25/17. Radiologist's impression: No pulmonary embolus is noted. Airspace disease with nodular and cystic change in the right upper lobe and nodular change in the lingula, which may represent inflammatory changes or neoplastic changes. Cirrhosis of the liver with ascites. DISCHARGE MEDICATIONS: New home medications: 1. Augmentin 875 mg oral twice daily for 7 days. 2. Dulera 200/5 mg MDI 2 puffs inhalation twice daily. 3. Nystatin cream applied topical twice daily. 4. Lispro insulin sliding scale before meals for glucose 131 to 150, no coverage; glucose 151 to 200, 1 unit of lispro, glucose 201 to 250, 2 units of lispro; glucose 251 to 300, 3 units lispro; glucose 301 to 350, 4 units of lispro; glucose 351 to 400, 5 units of lispro subcutaneous. 5. Prednisone 30 mg oral daily for 3 days, followed by 20 mg oral daily for 3 days, followed by 10 mg oral daily for 3 days and then discontinue. Continued home medications: 1. Nadolol 20 mg oral daily. 2. Albuterol sulfate 1 puff inhalation every 4 hours as needed for shortness of breath or wheeze. 3. Omeprazole 20 mg oral daily. 4. Spiriva 1 capsule inhalation daily. 5. Ferrous sulfate 325 mg oral daily. 6. Vitamin C 500 mg oral daily. 7. Furosemide 20 mg oral daily. 8. Spironolactone 25 mg oral daily. Changed home medications: NPH insulin 10 units subcutaneous twice daily. HISTORY OF PRESENT ILLNESS/HOSPITAL COURSE: Mr. Mcmanus is an 81-year-old male with a past medical history significant for COPD, cirrhosis, diabetes mellitus type 2, chronic kidney disease, hypertension, hyperlipidemia, bronchiolectasis, and a lung mass diagnosed in 2011 who presented to the emergency room with complaints of 2 days of worsening shortness of breath after completing a course of antibiotics after he was recently admitted to the hospital from 07/17/17 to 07/19/17. The patient had been feeling a little better when he left the hospital, but then started feeling worse over 2 days prior to his return to the emergency room. The patient was also noted to be drowsy and oriented only to person and place and he did not remember being previously admitted to the hospital. The patient's called the EMS to have him return to the emergency room for further evaluation. It is to note that during the patient's hospitalization earlier this month, he had a sputum culture that grew Achromobacter xylosoxidans, which was susceptible only to meropenem. It was unclear if the patient had been informed about his sputum culture results. The patient denied any shortness of breath, palpitations, swelling in his legs, changes in his urine. While in the emergency room, the patient was requiring high flow oxygen. The patient also reported frequently coughing and bringing up an occasional white sputum. The patient had labs showing no leukocytosis. He had an elevated potassium of 5.5. Ammonia level is 23. The patient had a chest x-ray showing right upper and left basilar infiltrates, unchanged since previous exam. He also had a chest and thoracic CTA showing no pulmonary embolus. Airspace disease with nodule and cystic change in the right upper lobe and nodular change in the lingula, which may represent inflammatory changes or neoplastic changes. The patient had an EKG showing normal sinus rhythm, no acute signs of ischemia. He had a brain CT showing no atrophy. The Hospitalists were asked to evaluate the patient for admission. While in the hospital, the patient was treated for pneumonia and COPD exacerbation. He was placed on steroids. He was also initially placed on meropenem, azithromycin, and vancomycin. After being seen in consultation by Dr. Vázquez with Infectious Disease, the patient was changed to ceftriaxone and azithromycin. The patient had blood cultures with no growth on day 2. He again had sputum cultures growing that were only sensitive to Zosyn. The patient was then switched to Augmentin today. The patient has been afebrile with no leukocytosis. The patient was seen in consultation by Dr. Lamar with palliative services. The patient improved his FiO2 requirements and was eventually weaned down to room air. He was continued on DuoNebs and placed on a prednisone taper, Dulera, and Spiriva. The patient initially had hyperkalemia that resolved after receiving Kayexalate. The patient's diabetes mellitus, his glucose was slightly elevated. He did have his NPH titrated up to try to get better control. The patient had a chronic anemia, perhaps related to chronic disease, but also has a reported history of a chronic GI bleed, which the patient has chosen to not have any further evaluation of. The patient has been normotensive during his stay. The patient has a chronic renal insufficiency with a stage 3 to 4 chronic kidney disease. The patient has a chronic thrombocytopenia due to his cirrhosis. The patient's felt that she could no longer take him home and felt that [facility] with hosp[facility] was the best option for the patient. Mr. Mcmanus is stable for discharge to [facility] with plan for hospice services with sign-on on Monday. Vital signs are as follows: Temperature 98.0, pulse 88, respiratory rate 16, O2 sat 95% on room air, blood pressure 111/46. DISCHARGE PLAN: Mr. Mcmanus will be discharged to [facility] today. Activity as tolerated. The patient should be on a regular diet. As far as the patient's pneumonia, he should complete a 7-day course of Augmentin. His first dose of Augmentin will be tonight. For the patient's COPD exacerbation, I recommend starting a prednisone taper tomorrow with 30 mg for 3 days followed by 20 mg for 3 days followed by 10 mg for 3 days. For the patient's cirrhosis and ascites, he has been resumed on his Lasix and spironolactone. I recommend rechecking a basic metabolic panel on Monday to make sure that the patient is not hyperkalemic again. Again, the patient will be signed on to hospice services on 08/01/17. The patient should return to the emergency room if desired for evaluation of chest pain or shortness of breath until he is placed on hospice. This is a summarized report of a complex medical history and hospital stay. For further details, please see the entire medical record. TIME SPENT: Time for this discharge was approximately 50 minutes. CONDITION ON DISCHARGE: Stable. SHANEL ZARAGOZA, JOA NN [id number]/[facility] #: [id number] ALEXUS
== END 2017-07-28 17:05 | DRG 190 ==
LOC: ED 15:57 → ICU 19:25 → MEDTELE 07-26 13:06 → MED 07-28 01:00
PROVIDERS: ADMIT Internal Medicine; ATTEND Internal Medicine
DX: J44.1 Chronic obstructive pulmonary disease with (acute) exacerbation (principal); J18.9 Pneumonia, unspecified organism; K76.7 Hepatorenal syndrome; N18.4 Chronic kidney disease, stage 4 (severe); E11.22 Type 2 diabetes mellitus with diabetic chronic kidney disease; D68.9 Coagulation defect, unspecified; D69.6 Thrombocytopenia, unspecified; J21.9 Acute bronchiolitis, unspecified; K92.2 Gastrointestinal hemorrhage, unspecified; D53.9 Nutritional anemia, unspecified; J44.0 Chronic obstructive pulmonary disease with (acute) lower respiratory infection; Z91.041 Radiographic dye allergy status; M19.90 Unspecified osteoarthritis, unspecified site; M10.9 Gout, unspecified; Z98.42 Cataract extraction status, left eye; Z98.41 Cataract extraction status, right eye; Z86.14 Personal history of Methicillin resistant Staphylococcus aureus infection; Z87.891 Personal history of nicotine dependence; Z83.3 Family history of diabetes mellitus; Z83.6 Family history of other diseases of the respiratory system; I12.9 Hypertensive chronic kidney disease with stage 1 through stage 4 chronic kidney disease, or unspecified chronic kidney disease; E78.5 Hyperlipidemia, unspecified; Z82.49 Family history of ischemic heart disease and other diseases of the circulatory system; Z82.3 Family history of stroke; R91.8 Other nonspecific abnormal finding of lung field; Z66 Do not resuscitate; E87.5 Hyperkalemia; K21.9 Gastro-esophageal reflux disease without esophagitis; K70.31 Alcoholic cirrhosis of liver with ascites; Z79.4 Long term (current) use of insulin; Z87.01 Personal history of pneumonia (recurrent)
CPT/HCPCS: 36415; 36600; 70450; 71010; 71275; 80048; 80053; 82140; 82550; 82553; 82803; 83605; 83690; 83735; 83880; 84443; 84484; 85025; 85379; 85610; 85730; 86140; 87040; 87070; 87077; 87186; 87205; 87641; 87899; 93005; 94640; 94760; A9270-GY; J0696; J1650; J2185; J3370; J3475; J7512; Q9967